=== PATIENT | female | born 1940 | race Caucasian/White ===

== ENCOUNTER 2025-02-12 09:31 | Inpatient (IN) ==
--- NOTE | 2025-02-12 09:48 | Emergency Department Note ---
Impression & Plan Syncope and collapse, Subtherapeutic international normalized ratio (INR), H/O prosthetic mitral valve, Atrial fibrillation, Long-term (current) use of anticoagulants, INR goal 2.0-3.0, Ribs, multiple fractures, Elevated troponin ED Provider Note NAME: NANCY BARRON AGE: 84 SEX: F : 1940 ARRIVES VIA: Ambulance INFORMANT: Patient ED PROVIDER(S): Mynor Toledo MD CHIEF COMPLAINT: Syncope, ?cardiac arrest PLAN: Disposition: Admit MEDICAL DECISION MAKING: The patient is a pleasant 84-year-old woman who presents to the emergency department via EMS for evaluation of reported cardiac arrest with ROSC after single round of chest compressions in the setting of the patient reporting that she got up this morning and upon standing felt lightheaded and then does not recall details. Per family the patient had become unresponsive. Upon EMS[facility] arrival they had lowered the patient to the ground due to her unresponsiveness and inability to obtain a blood pressure initially. They noted that the patient developed progressive bradycardia and appeared to be apneic and so CPR was initiated for 1 round where the patient subsequently regained consciousness. ALS did arrive to the scene and noted hypotension in the 60s/40s. They subsequently administered a single push dose of epinephrine with improvement in blood pressure. The patient is visiting family from her home in [place]. She reports a history of CABG for CAD as well as history of heart valve replacements which she understands are both "pig valves". She confirms that she is on warfarin but this is because of her "heart history". Of note, the patient does confirm upon our discussion that she is DNR and so confirms that she would not want CPR if her heart were to stop. She reports that she would be okay with intubation if this was temporizing. On evaluation patient is in no acute distress, afebrile with blood pressure in the 90s/50s with MAP 60-70+. There is mild ecchymosis of the chest wall without bony crepitus or discrete tenderness. She moves all extremities equally with generalized weakness. She has no focal neurologic deficits EKG demonstrates atrial fibrillation with LVH without overt ST elevation or depression. CXR negative for acute cardiopulmonary process per my personal preliminary review/interpretation. WBC 6.4K, within normal limits without left shift or neutrophilia. H/H 11.4/35.8 without prior for comparison. Platelets within normal limits. INR subtherapeutic 1.4. Chemistry without metabolic acidosis. Initial high- sensitivity troponin 335 in the setting of having received CPR. BNP 119, nonspecific. Lipase is normal. TSH is 9.8 however free T4 within normal limits. UA without evidence of infection. CT of the head without contrast was negative for acute abnormalities. Chronic sinusitis is described. CT of the chest was obtained and demonstrates acute bilateral rib fractures related to the patient's chest compressions prior to arrival, which includes right 2nd-7th ribs and right fifth rib fracture in 2 places as well as nondisplaced fractures of the anterior lateral left 2nd-8th ribs. No pneumothorax. Patient and family agree with plan for admission for further management. At this time, it is unclear if the patient's syncopal episode relates to true cardiac arrest versus syncope related to acute hypotension. Case was discussed with ERNST Pink PAC, with Dr. Gallo [facility] hospitalist who will evaluate the patient for admission. Case also discussed with Dr. Figueroa, ICU title i coordinator. Further management per ICU and admitting team. Triage Nursing notes reviewed and agree them. Prior/external medical records reviewed Vital Signs: reviewed Differential diagnosis: Vasovagal event, dehydration, infection, hypoglycemia, electrolyte abnormalities, cardiac sources, intracerebral event, pulmonary embolism, seizure, toxicologic, neurologic, as well as other pathologies. ER treatment provided: See below. Diagnostics interpreted by me: ECG: Atrial fibrillation, 81 bpm, no ectopy, LVH, no overt ST elevation or depression, QTc 490, QRS 118. Cardiac Monitoring: An order for continuous cardiac monitoring was placed and demonstrated Atrial fibrillation, 81 bpm, no ectopy, LVH, Laboratory studies: See below Imaging studies: See below Consultation(s): ERNST Pink PAC, with Dr. Gallo [facility] hospitalist. Dr. Figueroa, ICU title i coordinator. HPI: Per MDM. ROS: See above HPI for pertinent positives & negatives. A total of 10 systems reviewed and were otherwise negative. VITALS:See Below PHYSICAL EXAMINATION: GENERAL: Awake, alert, fatigued-appearing, in no distress HENT: Normocephalic, atraumatic. Oropharynx with dry mucous membranes and otherwise unremarkable. EYES: Normal conjunctiva. Sclera non-icteric. EOMI. No nystamgus. PEARRL. NECK: Supple. No nuchal rigidity. FROM. No JVD. RESPIRATORY: Clear to auscultation. CARDIAC: Regular rate, irregular rhythm. Extremities warm and well perfused. Pulses equal. ABDOMEN: Soft, non-distended. No tenderness to palpation. No rebound or guarding. No masses. MUSCULOSKELETAL: Chest examination reveals mild ecchymosis of the chest wall without bony crepitus or discrete tenderness. The back is symmetrical on inspection without obvious abnormality. There is no CVA tenderness to palpation. No joint edema. LOWER EXTREMITIES: Calves are equal size bilaterally and non-tender. No edema. No discoloration. NEURO: Normal sensorium. No focal sensory or motor deficits noted. Generalized weakness. SKIN: No rash or jaundice noted. Mynor Toledo MD Past Med/Surg History Problem List (Updated 02/12/25 @ 19:16 by Mynor Toledo MD) Elevated troponin (Acute) Hypothyroid Atrial fibrillation (Acute) H/O prosthetic mitral valve (Acute) Cardiac arrest Prolonged Q-T interval on ECG Subtherapeutic international normalized ratio (INR) (Acute) Ribs, multiple fractures (Acute) Sick euthyroidism Long-term (current) use of anticoagulants, INR goal 2.0-3.0 (Acute) DNR (do not resuscitate) discussion Syncope and collapse (Acute) Medical History On warfarin therapy Coronary artery disease Surgical History History of heart valve replacement Hx of CABG Social History Smoking Status: Never smoker Second Hand Exposure: No; Do You Dip or Chew Tobacco: No; Hx Alcohol Use: No Hx Substance Use: No Preferred Language: Venezuelan Communication Ability: Effective Supervisor Phosphorus Processing Required: No Beliefs That Will Affect Care: None Current Living Situation: Custodial Feels Safe at Home: Yes Assistive Devices: Cane, Denture - Upper, Denture - Lower, Glasses, Hearing Aid - Bilateral and Wheelchair Allergies Allergies Allergy/AdvReac Type Severity Reaction Status Date / Time latex Allergy Rash Verified 02/12/25 11:40 Home Meds Home Medications Medication Instructions Recorded Confirmed acetaminophen 650 mg 650 mg PO QPM 08/12/25 08/12/25 tablet,extended release ascorbic acid (vitamin C) 500 mg 1,000 mg PO QAM 02/12/25 02/12/25 tablet (Vitamin C) atorvastatin 40 mg tablet 40 mg PO QPM 02/12/25 02/12/25 calcium carbonate 500 mg PO QAM 02/12/25 02/12/25 cholecalciferol (vitamin D3) 125 125 mcg PO QAM 02/12/25 02/12/25 mcg (5,000 unit) tablet (Vitamin D3) cyanocobalamin (vitamin B-12) 1,000 mcg PO QAM 02/12/25 02/12/25 1,000 mcg tablet (Vitamin B-12) duloxetine 60 mg capsule,delayed 60 mg PO QAM 02/12/25 02/12/25 release ferrous sulfate 325 mg (65 mg 325 mg PO BID 02/12/25 02/12/25 iron) tablet furosemide 40 mg tablet 40 mg PO QAM 02/12/25 02/12/25 levothyroxine 25 mcg tablet 25 mcg PO DAILYBB 02/12/25 02/12/25 melatonin 5 mg tablet 10 mg PO QPM 02/12/25 02/12/25 metoprolol succinate 50 mg 50 mg PO QAM 02/12/25 02/12/25 tablet,extended release 24 hr omeprazole 20 mg capsule,delayed 20 mg PO QAM 02/12/25 02/12/25 release pregabalin 75 mg capsule (Lyrica) 75 mg PO BID 02/12/25 02/12/25 sennosides 8.6 mg-docusate sodium 2 tab-cap PO BID 02/12/25 02/12/25 50 mg tablet (Senna Plus) tramadol 50 mg tablet 50 mg PO Q8H Pain 02/12/25 02/12/25 trazodone 100 mg tablet 100 mg PO QPM 02/12/25 02/12/25 warfarin 1 mg tablet 0.5 mg PO QPM 02/12/25 02/12/25 warfarin 4 mg tablet 4 mg PO QPM 02/12/25 02/12/25 Results & Data (ED) Vital Signs Vital Signs - 24 hr 02/12/25 09:29 02/12/25 09:34 02/12/25 09:34 Temperature 36.4 C L Temperature Source Temporal Artery Scan Pulse Rate 79 Pulse Rate [Apical] Pulse Rate from SpO2 Sensor Respiratory Rate 18 18 Respiratory Effort / Characteristics Respiratory Depth Respiratory Pattern Blood Pressure 91/46 L Blood Pressure [Right Arm] Blood Pressure Mean 61 Blood Pressure Mean [Right Arm] Pulse Oximetry 91 Oxygen Delivery Method Room Air Room Air Oxygen Flow Rate Sepsis Recent Fever Within 48 Hours No Sepsis New/Unexplained Change in Mental Status N/A Sepsis Action Taken by Nursing No Action Required Oxygen Flow Rate - Titration Pulse Oximetry Post Tiitration 02/12/25 09:38 02/12/25 09:41 02/12/25 09:43 Temperature Temperature Source Pulse Rate 86 83 Pulse Rate [Apical] Pulse Rate from SpO2 Sensor Respiratory Rate Respiratory Effort / Characteristics Respiratory Depth Respiratory Pattern Blood Pressure 91/46 L 96/54 L Blood Pressure [Right Arm] Blood Pressure Mean 75 68 Blood Pressure Mean [Right Arm] Pulse Oximetry Oxygen Delivery Method Oxygen Flow Rate Sepsis Recent Fever Within 48 Hours Sepsis New/Unexplained Change in Mental Status Sepsis Action Taken by Nursing Oxygen Flow Rate - Titration Pulse Oximetry Post Tiitration 02/12/25 09:45 02/12/25 09:45 02/12/25 09:50 Temperature Temperature Source Pulse Rate 82 Pulse Rate [Apical] Pulse Rate from SpO2 Sensor 84 Respiratory Rate 13 Respiratory Effort / Characteristics Respiratory Depth Respiratory Pattern Blood Pressure 100/49 L Blood Pressure [Right Arm] Blood Pressure Mean 66 Blood Pressure Mean [Right Arm] Pulse Oximetry 90 90 Oxygen Delivery Method Room Air Oxygen Flow Rate Sepsis Recent Fever Within 48 Hours Sepsis New/Unexplained Change in Mental Status Sepsis Action Taken by Nursing Oxygen Flow Rate - Titration Pulse Oximetry Post Tiitration 02/12/25 09:50 02/12/25 09:51 02/12/25 09:55 Temperature Temperature Source Pulse Rate 80 Pulse Rate [Apical] Pulse Rate from SpO2 Sensor 82 Respiratory Rate 17 Respiratory Effort / Characteristics Respiratory Depth Respiratory Pattern Blood Pressure 100/49 L 107/67 Blood Pressure [Right Arm] Blood Pressure Mean 66 82 Blood Pressure Mean [Right Arm] Pulse Oximetry 89 L Oxygen Delivery Method Oxygen Flow Rate Sepsis Recent Fever Within 48 Hours Sepsis New/Unexplained Change in Mental Status Sepsis Action Taken by Nursing Oxygen Flow Rate - Titration Pulse Oximetry Post Tiitration 02/12/25 09:55 02/12/25 09:55 02/12/25 10:00 Temperature Temperature Source Pulse Rate 83 Pulse Rate [Apical] Pulse Rate from SpO2 Sensor 86 Respiratory Rate 15 Respiratory Effort / Characteristics Respiratory Depth Respiratory Pattern Blood Pressure 107/67 107/67 Blood Pressure [Right Arm] Blood Pressure Mean 82 82 Blood Pressure Mean [Right Arm] Pulse Oximetry 94 Oxygen Delivery Method Oxygen Flow Rate Sepsis Recent Fever Within 48 Hours Sepsis New/Unexplained Change in Mental Status Sepsis Action Taken by Nursing Oxygen Flow Rate - Titration Pulse Oximetry Post Tiitration 02/12/25 10:21 02/12/25 10:21 02/12/25 10:25 Temperature Temperature Source Pulse Rate Pulse Rate [Apical] Pulse Rate from SpO2 Sensor Respiratory Rate Respiratory Effort / Characteristics Respiratory Depth Respiratory Pattern Blood Pressure 99/54 L Blood Pressure [Right Arm] Blood Pressure Mean 71 Blood Pressure Mean [Right Arm] Pulse Oximetry 88 L 88 L Oxygen Delivery Method Room Air Oxygen Flow Rate 0 Sepsis Recent Fever Within 48 Hours Sepsis New/Unexplained Change in Mental Status Sepsis Action Taken by Nursing Oxygen Flow Rate - Titration 2 Pulse Oximetry Post Tiitration 95 02/12/25 10:30 02/12/25 10:30 02/12/25 10:30 Temperature Temperature Source Pulse Rate Pulse Rate [Apical] Pulse Rate from SpO2 Sensor Respiratory Rate Respiratory Effort / Characteristics Respiratory Depth Respiratory Pattern Blood Pressure 95/58 L 95/58 L 95/58 L Blood Pressure [Right Arm] Blood Pressure Mean 63 63 63 Blood Pressure Mean [Right Arm] Pulse Oximetry 94 Oxygen Delivery Method Nasal Cannula Oxygen Flow Rate 2 Sepsis Recent Fever Within 48 Hours Sepsis New/Unexplained Change in Mental Status Sepsis Action Taken by Nursing Oxygen Flow Rate - Titration Pulse Oximetry Post Tiitration 02/12/25 10:30 02/12/25 10:33 02/12/25 10:35 Temperature Temperature Source Pulse Rate 82 67 Pulse Rate [Apical] Pulse Rate from SpO2 Sensor 78 Respiratory Rate 17 14 Respiratory Effort / Characteristics Respiratory Depth Respiratory Pattern Blood Pressure 95/58 L 94/54 L Blood Pressure [Right Arm] Blood Pressure Mean 63 68 Blood Pressure Mean [Right Arm] Pulse Oximetry 94 92 Oxygen Delivery Method Nasal Cannula Oxygen Flow Rate 2 Sepsis Recent Fever Within 48 Hours Sepsis New/Unexplained Change in Mental Status Sepsis Action Taken by Nursing Oxygen Flow Rate - Titration Pulse Oximetry Post Tiitration 02/12/25 10:35 02/12/25 10:35 02/12/25 11:03 Temperature Temperature Source Pulse Rate Pulse Rate [Apical] 79 Pulse Rate from SpO2 Sensor Respiratory Rate 18 Respiratory Effort / Characteristics Non-Labored Respiratory Depth Normal Respiratory Pattern Regular Blood Pressure 94/54 L 94/54 L Blood Pressure [Right Arm] 88/50 L Blood Pressure Mean 68 68 Blood Pressure Mean [Right Arm] 62 Pulse Oximetry 91 Oxygen Delivery Method Nasal Cannula Oxygen Flow Rate 3 Sepsis Recent Fever Within 48 Hours Sepsis New/Unexplained Change in Mental Status Sepsis Action Taken by Nursing Oxygen Flow Rate - Titration Pulse Oximetry Post Tiitration 02/12/25 11:30 Temperature Temperature Source Pulse Rate 69 Pulse Rate [Apical] Pulse Rate from SpO2 Sensor 76 Respiratory Rate 16 Respiratory Effort / Characteristics Respiratory Depth Respiratory Pattern Blood Pressure 88/58 L Blood Pressure [Right Arm] Blood Pressure Mean 68 Blood Pressure Mean [Right Arm] Pulse Oximetry 92 Oxygen Delivery Method Oxygen Flow Rate Sepsis Recent Fever Within 48 Hours Sepsis New/Unexplained Change in Mental Status Sepsis Action Taken by Nursing Oxygen Flow Rate - Titration Pulse Oximetry Post Tiitration Laboratory Data Attestation: I reviewed the patient's lab results. 02/12/25 09:42 02/12/25 09:42 Lab Results 02/12/25 02/12/25 Range/Units 09:42 09:45 WBC 6.46 (4.8-10.8) K/ul RBC 3.86 L (4.20-5.40) M/uL Hgb 11.4 L (12.0-16.0) g/dl POC Hgb 11.2 L (12.0-16.0) g/dl Hct 35.8 L (37.0-47.0) % POC Hct 33 L (37-47) % MCV 92.7 (80.0-100.0) fL MCH 29.5 (25.0-34.0) pg MCHC 31.8 L (32.0-36.0) g/dL RDW Std Deviation 50.7 H (36.4-46.3) fL RDW Coeff of Ashley 15.0 H (11.5-14.5) % Plt Count 155 (130-400) K/uL MPV 11.2 (9.4-12.4) fL Immature Gran % (Auto) 1.4 % Neut % (Auto) 51.8 % Lymph % (Auto) 37.5 % Pender % (Auto) 7.3 % Eos % (Auto) 1.7 % Baso % (Auto) 0.3 % Neut # (Auto) 3.35 (1.40-6.50) K/uL Lymph # (Auto) 2.42 (1.20-3.40) K/uL Pender # (Auto) 0.47 (0.11-0.59) K/uL Eos # (Auto) 0.11 (0.00-0.50) K/uL Baso # (Auto) 0.02 (0.00-0.20) K/uL Immature Gran # (Auto) 0.09 (0.01-0.20) K/uL PT 14.6 H (9.0-12.0) Seconds INR 1.4 H (0.9-1.1) POC Sodium 140 (135-144) mmol/L Sodium 142 (136-145) mmol/L POC Potassium 3.3 (3.3-5.0) mmol/L Potassium 3.4 L (3.5-5.1) mmol/L POC Chloride 100 L (101-112) mmol/L Chloride 103 (98-107) mmol/L Carbon Dioxide 33 H (21-32) mmol/L POC Total CO2 27 (24-31) mmol/L Anion Gap 6 (3-11) POC Anion Gap 18.0 (16-25) mmol/L POC BUN 14 (7-18) mg/dl BUN 15 (6-23) mg/dl Creatinine 1.07 (0.6-1.2) mg/dl POC Creatinine 1.2 (0.6-1.3) mg/dl Est Cr Clr Drug Dosing 33.2 ml/min eGFR 50.90 BUN/Creatinine Ratio 14.0 (10-20) Glucose 159 H (70-99(Fasting)) mg/dl POC Glucose (other) 155 H (70-99) mg/dl Calcium 8.8 (8.6-10.3) mg/dl POC Ioniz Calcium Usha 1.12 (1.12-1.32) mmol/l Phosphorus 3.7 (2.5-4.9) mg/dl Magnesium 1.8 (1.7-2.4) mg/dl Total Bilirubin 1.0 (0.2-1.0) mg/dl AST 33 (13-39) U/L ALT 22 (7-52) U/L Alkaline Phosphatase 48 (34-104) U/L Troponin I High Sens 335.0 H* (0-14) pg/ml B-Natriuretic Peptide 119 H (0-100) pg/ml Total Protein 6.2 (6.0-8.3) gm/dl Albumin 3.9 (3.4-5.0) gm/dl Globulin 2.3 L (2.5-4.0) gm/dl Albumin/Globulin Ratio 1.7 (0.9-2) Lipase 28 (11-82) U/L TSH 9.855 H (0.300-4.500) uIu/ml Free T4 0.85 (0.61-1.60) ng/dl Administered Medications Lidocaine (Lidocaine 5% 1 Patch) 1 patch TD QAM MATHEW Stop: 03/14/25 14:59 Last Admin: 02/12/25 15:06 Dose: 1 patch Documented By: KASI Pregabalin (Pregabalin 75 Mg Cap) 75 mg PO BID@0900,1600 MATHEW Stop: 03/14/25 18:29 Last Admin: 02/12/25 18:39 Dose: 75 mg Documented By: KASI Discontinued Medications Sodium Chloride (Nss) 500 mls @ 999 mls/hr IV .Q31M ONE Stop: 02/12/25 10:16 Last Infusion: 02/12/25 10:23 Dose: Infused Documented By: Admin: 02/12/25 09:52 Dose: 999 mls/hr Documented By: STEPHANIE Acetaminophen (Ofirmev) 1,000 mg in 100 mls @ 400 mls/hr IV NOW STA Stop: 02/12/25 10:00 Last Infusion: 02/12/25 10:23 Dose: Infused Documented By: Admin: 02/12/25 09:51 Dose: 400 mls/hr Documented By: STEPHANIE Lactated Ringer's (Lr) 1,000 mls @ 999 mls/hr IV .Q1H1M ONE Stop: 02/12/25 14:25 Last Infusion: 02/12/25 14:43 Dose: Infused Documented By: Admin: 02/12/25 13:35 Dose: 999 mls/hr Documented By: TINY Ioversol (Optiray 320 100ml) 94 ml IV ONCE ONE Stop: 02/12/25 10:21 Last Admin: 02/12/25 10:20 Dose: 94 ml Documented By: PALMIRA Tramadol HCl (Tramadol Hcl 50 Mg Tablet) 50 mg PO Q6H PRN PRN Reason: MODERATE/SEVERE Pain Stop: 03/14/25 14:41 Last Admin: 02/12/25 14:57 Dose: 50 mg Documented By: KASI Imaging Data Radiologist's Impression: Chest X-Ray 02/12/25 09:45 XR chest 1V portable CLINICAL HISTORY: Chest pain, nonspecific COMPARISON STUDY: None FINDINGS: There is cardiac valve repair. There is mild cardiomegaly without pulmonary vascular congestion. No consolidation or pleural effusion seen. No pneumothorax. IMPRESSION: No acute findings. ACT 112: Negative or not required by law. Electronically signed by: Jeremy Godfrey M.D. 02/12/2025 10:[address] 02/12/25 09:[address] WITH CONTRAST CT DOSE: 1172.03 mGy.cm HISTORY: Acute chest and upper back pain. Recent cardiac arrest with CPR chest/back pain, s/p CPR TECHNIQUE: Multiaxial CT images of the chest were performed following the IV administration of 94 cc of Optiray. A dose lowering technique was utilized adhering to the principles of ALARA. COMPARISON: None. FINDINGS: No dominant thyroid nodule or pathologically enlarged lymph nodes. Heart is mildly enlarged. Median sternotomy. Prosthetic aortic and mitral valves. Mild ectasia of the ascending thoracic aorta measures 3.9 cm. Unremarkable pulmonary artery. No pneumothorax, pleural effusion or overt pulmonary edema. Subsegmental bibasilar atelectasis/scarring. There are no suspicious pulmonary nodules or masses. Central airways are patent. Cholecystectomy. Unremarkable soft tissues. Degenerative changes of the shoulders and spine. No acute displaced rib fractures. Acute bilateral anterolateral rib fractures. This includes the right second through seventh ribs with the right fifth rib fracture in two places. Acute nondisplaced fractures of the anterolateral left second through eighth ribs. A few of the fractures are mildly angulated. The left fifth rib is fractured in two places with minimally displaced fracture anteriorly on image 159. No acute sternal fracture identified. IMPRESSION: 1. Acute bilateral rib fractures with the anterior left fifth rib fracture mildly displaced. 2. No pneumothorax. 3. No acute sternal fracture identified. ACT 112: Negative or not required by law. Electronically signed by: Regulo Olsen M.D. 02/12/2025 10:[address] 02/12/25 09:47 CT head/brain wo con CLINICAL HISTORY: syncope. TECHNIQUE: Multiple axial CT images of the head were obtained without contrast. A dose lowering technique was utilized adhering to the principles of ALARA. CT DOSE: 1172 COMPARISON: None FINDINGS: There are globus pallidus and choroid plexus calcifications. No intracranial hemorrhage seen. No mass effect, midline shift, or hydrocephalus. There are a few old lacunar infarctions at the left basal ganglia. There are moderate chronic small vessel ischemic changes. There is severe mucosal thickening at the visualized right maxillary sinus with mild thickening of the right maxillary sinus wall consistent with chronic right maxillary sinusitis. Otherwise the visualized paranasal sinuses and mastoid air cells are clear. No skull fracture seen. IMPRESSION: 1. No acute intracranial findings. 2. Chronic right maxillary sinusitis. ACT 112: Negative or not required by law. The above report was generated using voice recognition software. It may contain grammatical, syntax or spelling errors. Electronically signed by: Jeremy Godfrey M.D. 02/12/2025 10:26 AM Discharge Plan Visit Data Chief Complaint: Cardiac Arrest/CPR Stated Complaint: POST CARDIAC ARREST ED Provider: Mynor Toledo Discharge Problem: Syncope and collapse, Subtherapeutic international normalized ratio (INR), H/O prosthetic mitral valve, Atrial fibrillation, Long-term (current) use of anticoagulants, INR goal 2.0-3.0, Ribs, multiple fractures, Elevated troponin Patient Disposition: Admitted As Inpatient Condition: Critical Discharge Problem: Atrial fibrillation Qualifiers: Atrial fibrillation type: unspecified Qualified Code(s): I48.91 - Unspecified atrial fibrillation Ribs, multiple fractures Qualifiers: Encounter type: initial encounter Fracture type: closed Laterality: bilateral Q ualified Code(s): S22.43XA - Multiple fractures of ribs, bilateral, initial encounter for closed fracture
[2025-02-12] MEDS: ACETAMINOPHEN 1,000 MG/100 ML VIAL IV STA (09:51)
[2025-02-12] MEDS: SODIUM CHLORIDE 0.9% 500 ML IV ONE (09:52)
[2025-02-12 10:11] LABS: Hematocrit (blood only) 35.8 % (37.0-47.0); Hemoglobin 11.4 g/dl (12.0-16.0); Immature Granulocytes # (auto) 0.09 K/uL (0.01-0.20); Immature Granulocytes % (auto) 1.4 %; Mean Corpuscular Hemoglobin 29.5 pg (25.0-34.0); Mean Corpuscular Volume 92.7 fL (80.0-100.0); Platelet Count 155 K/uL (130-400); RDW Standard Deviation 50.7 fL (36.4-46.3); Red Blood Count 3.86 M/uL (4.20-5.40); White Blood Count 6.46 K/ul (4.8-10.8)
--- NOTE | 2025-02-12 10:18 | XRay Report ---
XR chest 1V portable CLINICAL HISTORY: Chest pain, nonspecific COMPARISON STUDY: None FINDINGS: There is cardiac valve repair. There is mild cardiomegaly without pulmonary vascular conges tion. No consolidation or pleural effusion seen. No pneumothorax. IMPRESSION: No acute findings. ACT 112: Negative or not required by law. Electronically signed by: Jeremy Godfrey M.D. 02/12/2025 10:17 AM
[2025-02-12] MEDS: OPTIRAY 320 100ml IV ONE (10:20)
[2025-02-12 10:26] LABS: Alanine Aminotransferase 22.0 U/L (7-52); Albumin Globulin Ratio 1.7 (0.9-2); Alkaline Phosphatase 48.0 U/L (34-104); Anion Gap 6.0 (3-11); Bilirubin,Total 1.0 mg/dl (0.2-1.0); Blood Urea Nitrogen 15.0 mg/dl (6-23); Calcium 8.8 mg/dl (8.6-10.3); Carbon Dioxide 33.0 mmol/L (21-32); Chloride 103.0 mmol/L (98-107); Creatinine Clr Calc Pharmacy 33.2 ml/min; Globulin 2.3 gm/dl (2.5-4.0); Glucose 159.0 mg/dl (70-99(Fasting)); Lipase 28.0 U/L (11-82); Magnesium 1.8 mg/dl (1.7-2.4); Potassium 3.4 mmol/L (3.5-5.1); Sodium 142.0 mmol/L (136-145); Total Protein 6.2 gm/dl (6.0-8.3)
--- NOTE | 2025-02-12 10:27 | CT Scan Report ---
CT head/brain wo con CLINICAL HISTORY: syncope. TECHNIQUE: Multiple axial CT images of the head were obtained without contrast. A dose lowering tech nique was utilized adhering to the principles of ALARA. CT DOSE: 1172 COMPARISON: None FINDINGS: There are globus pallidus and choroid plexus calcifications. No intracranial hemorrhage see n. No mass effect, midline shift, or hydrocephalus. There are a few old lacunar infarctions at the le ft basal ganglia. There are moderate chronic small vessel ischemic changes. There is severe mucosal t hickening at the visualized right maxillary sinus with mild thickening of the right maxillary sinus w all consistent with chronic right maxillary sinusitis. Otherwise the visualized paranasal sinuses and mastoid air cells are clear. No skull fracture seen. IMPRESSION: 1. No acute intracranial findings. 2. Chronic right maxillary sinusitis. ACT 112: Negative or not required by law. The above report was generated using voice recognition software. It may contain grammatical, syntax o r spelling errors. Electronically signed by: Jeremy Godfrey M.D. 02/12/2025 10:26 AM
[2025-02-12 10:34] LABS: INR 1.4 (0.9-1.1); Prothrombin Time 14.6 Seconds (9.0-12.0)
[2025-02-12 10:39] LABS: Thyroid Stimulating Hormone 9.855 uIu/ml (0.300-4.500)
--- NOTE | 2025-02-12 10:48 | CT Scan Report ---
CHEST CT WITH CONTRAST CT DOSE: 1172.03 mGy.cm HISTORY: Acute chest and upper back pain. Recent cardiac arrest with CPR chest/back pain, s/p CPR TECHNIQUE: Multiaxial CT images of the chest were performed following the IV administration of 94 cc of Optiray. A dose lowering technique was utilized adhering to the principles of ALARA. COMPARISON: None. FINDINGS: No dominant thyroid nodule or pathologically enlarged lymph nodes. Heart is mildly enlarged . Median sternotomy. Prosthetic aortic and mitral valves. Mild ectasia of the ascending thoracic aort a measures 3.9 cm. Unremarkable pulmonary artery. No pneumothorax, pleural effusion or overt pulmonary edema. Subsegmental bibasilar atelectasis/scarri ng. There are no suspicious pulmonary nodules or masses. Central airways are patent. Cholecystectomy. Unremarkable soft tissues. Degenerative changes of the shoulders and spine. No acute displaced rib f ractures. Acute bilateral anterolateral rib fractures. This includes the right second through seventh ribs with the right fifth rib fracture in two places. Acute nondisplaced fractures of the anterolate ral left second through eighth ribs. A few of the fractures are mildly angulated. The left fifth rib is fractured in two places with minimally displaced fracture anteriorly on image 159. No acute sterna l fracture identified. IMPRESSION: 1. Acute bilateral rib fractures with the anterior left fifth rib fracture mildly displaced. 2. No pneumothorax. 3. No acute sternal fracture identified. ACT 112: Negative or not required by law. Electronically signed by: Regulo Olsen M.D. 02/12/2025 10:47 AM
--- NOTE | 2025-02-12 11:47 | History & Physical Report ---
Date of Service February 12, 2025 Assessment & Plan (1) Cardiac arrest: (2) H/O prosthetic mitral valve: (3) Ribs, multiple fractures: (4) Atrial fibrillation: (5) Hypothyroid: Plan Aura is an 84 F with a PMHx of afib, HLD, hypothyroid, GERD, and CHF who presents to hospital after possible outside cardiac arrest. #Cardiac arrest ROSC obtained in the field, however given story possible syncopal event or arrhythmia Troponin elevated 1177trend to peak every 6 hours Cardiology consulted Echo ordered - EF 60 to 65%, no regional wall motion abnormalities, moderate concentric LVH. Prosthetic mitral valve is well-seated. PT/OT #Rib fractures- Secondary to CPR Ribs 2 through 7 on the right, ribs 2 through 8 on the left. Initially plan was to admit to the ICU, however patient declined any ICU level care. Remains a DNR/DNI, would not want vasopressors. Admitted to PCU and pulmonology was consulted - recommend supportive care aggressive pulmonary toilet with incentive spirometry, ambulation as tolerated. If pain is not controlled recommend anesthesia consultation for regional block. Wean oxygen as tolerated, baseline is room air Pain control: Scheduled Tylenol, as needed Tylenol, morphine for breakthrough. Continue home schedule tramadol #A-fib on warfarin Also with prosthetic mitral valve Continue metoprolol and statin Hold warfarin todayreassess bleeding/bruising in AM. #mental health - continue cymbalta #hypothyroid - continue synthroid TSH elevated but with acute events recommend recheck outpatient, no dose adjustments made dispo: Admit to PCU DVT prophylaxis: Hold Coumadin, SCDs for now Family updated at bedside 02/[address] wise History of Present Illness Chief Complaint: cardiac arrest Primary Care Provider: NO PCP Aura is an 84 F with a PMHx of afib, HLD, hypothyroid, GERD, hx of breast cancer, ERASTO and CHF who presents to hospital after possible outside cardiac arrest. history obtained from patient, ER doctor and family at bedside. Per report, pateint felt fine this morning, took her pills and was eating breakfast. Was trying to take a sip of her coffee and was weak and could not lift her arm and then became weak and unresponsive. [facility] ambulence crew on scene thought she had lost pulse and started compressions, rosc after one round of compressions. then BP was 60/40s and one round of epi was given patient does not recall the events. Reports feeling tired when I saw her in the ED. NOrmal state of health the last few days. Did take her medications this mroning informed of her rib fractures Patient would like to be a DNR/DNI Allergies Allergy/AdvReac Type Severity Reaction Status Date / Time latex Allergy Rash Verified 02/12/25 11:40 Home Medications Medication Instructions Recorded Confirmed Type acetaminophen 650 mg 650 mg PO QPM 02/12/25 02/12/25 History tablet,extended release ascorbic acid (vitamin C) 500 mg 1,000 mg PO QAM 02/12/25 02/12/25 History tablet (Vitamin C) atorvastatin 40 mg tablet 40 mg PO QPM 02/12/25 02/12/25 History calcium carbonate 500 mg PO QAM 02/12/25 02/12/25 History cholecalciferol (vitamin D3) 125 125 mcg PO QAM 02/12/25 02/12/25 History mcg (5,000 unit) tablet (Vitamin D3) cyanocobalamin (vitamin B-12) 1,000 mcg PO QAM 02/12/25 02/12/25 History 1,000 mcg tablet (Vitamin B-12) duloxetine 60 mg capsule,delayed 60 mg PO QAM 02/12/25 02/12/25 History release ferrous sulfate 325 mg (65 mg 325 mg PO BID 02/12/25 02/12/25 History iron) tablet furosemide 40 mg tablet 40 mg PO QAM 02/12/25 02/12/25 History levothyroxine 25 mcg tablet 25 mcg PO DAILYBB 02/12/25 02/12/25 History melatonin 5 mg tablet 10 mg PO QPM 02/12/25 02/12/25 History metoprolol succinate 50 mg 50 mg PO QAM 02/12/25 02/12/25 History tablet,extended release 24 hr omeprazole 20 mg capsule,delayed 20 mg PO QAM 02/12/25 02/12/25 History release pregabalin 75 mg capsule (Lyrica) 75 mg PO BID 02/12/25 02/12/25 History sennosides 8.6 mg-docusate sodium 2 tab-cap PO BID 02/12/25 02/12/25 History 50 mg tablet (Senna Plus) tramadol 50 mg tablet 50 mg PO Q8H Pain 02/12/25 02/12/25 History trazodone 100 mg tablet 100 mg PO QPM 02/12/25 02/12/25 History warfarin 1 mg tablet 0.5 mg PO QPM 02/12/25 02/12/25 History warfarin 4 mg tablet 4 mg PO QPM 02/12/25 02/12/25 History Past Med/Surg History Problem List (Updated 02/12/25 @ 19:16 by Mynor Toledo MD) Elevated troponin (Acute) Hypothyroid Atrial fibrillation (Acute) H/O prosthetic mitral valve (Acute) Cardiac arrest Prolonged Q-T interval on ECG Subtherapeutic international normalized ratio (INR) (Acute) Ribs, multiple fractures (Acute) Sick euthyroidism Long-term (current) use of anticoagulants, INR goal 2.0-3.0 (Acute) DNR (do not resuscitate) discussion Syncope and collapse (Acute) Medical History On warfarin therapy Coronary artery disease Surgical History History of heart valve replacement Hx of CABG Social History Smoking Status: Never smoker Second Hand Exposure: No; Do You Dip or Chew Tobacco: No; Hx Alcohol Use: No Hx Substance Use: No Preferred Language: Hungarian Communication Ability: Effective Commodity Specialist Required: No Beliefs That Will Affect Care: None Current Living Situation: [facility] Feels Safe at Home: Yes Assistive Devices: Cane, Denture - Upper, Denture - Lower, Glasses, Hearing Aid - Bilateral and Wheelchair Review of Systems Review of Systems: All systems reviewed & are unremarkable except as noted in Subjective Physical Exam Physical Exam: General: NAD, VS as above Resp: normal respiratory effort, lungs clear to auscultation chest - no bruising or obvious deformity CV: RRR, no murmur, Abd: normal bowel sounds, non tender, no hepatosplenomegaly Extremities: Moves all extremities, no edema Neuro: A&O x3, Skin: intact, no lesions noted Results & Data Results & Data Vital Signs (Past 12 Hours) Vital Signs Temp Pulse Pulse Resp BP BP Pulse Ox 02/12/25 11:03 79 18 88/50 L 91 02/12/25 10:35 94/54 L 02/12/25 10:35 94/54 L 02/12/25 10:35 67 14 94/54 L 92 02/12/25 10:33 82 17 94 02/12/25 10:30 95/58 L 02/12/25 10:30 95/58 L 02/12/25 10:30 95/58 L 02/12/25 10:30 95/58 L 94 02/12/25 10:25 99/54 L 02/12/25 10:21 88 L 02/12/25 10:21 88 L 02/12/25 10:00 83 15 94 02/12/25 09:55 107/67 02/12/25 09:55 107/67 02/12/25 09:55 107/67 02/12/25 09:51 80 17 89 L 02/12/25 09:50 100/49 L 02/12/25 09:50 100/49 L 02/12/25 09:45 82 13 90 02/12/25 09:45 90 02/12/25 09:43 96/54 L 02/12/25 09:41 83 02/12/25 09:38 86 91/46 L 02/12/25 09:34 18 02/12/25 09:34 02/12/25 09:29 97.5 F L 79 18 91/46 L 91 O2 Del Method O2 Flow Rate 02/12/25 11:03 Nasal Cannula 3 02/12/25 10:35 02/12/25 10:35 02/12/25 10:35 Nasal Cannula 2 02/12/25 10:33 02/12/25 10:30 02/12/25 10:30 02/12/25 10:30 02/12/25 10:30 Nasal Cannula 2 02/12/25 10:25 02/12/25 10:21 Room Air 0 02/12/25 10:21 02/12/25 10:00 02/12/25 09:55 02/12/25 09:55 02/12/25 09:55 02/12/25 09:51 02/12/25 09:50 02/12/25 09:50 02/12/25 09:45 02/12/25 09:45 Room Air 02/12/25 09:43 02/12/25 09:41 02/12/25 09:38 02/12/25 09:34 02/12/25 09:34 Room Air 02/12/25 09:29 Room Air Laboratory Results cbc, chemistry, INR reviewed troponin reviewed TSH reviewed UA reviewed Code Status & VTE Plan VTE Prophylaxis Plan VTE Prophylaxis will be ordered: Yes Supervising Physician Co-Signing Physician Notes PA Supervision Note: I personally saw and examined the patient. I verified all villafana points and agree with ISREAL Boyd with the following exceptions and/or additions: S-patient presents after having cardiac arrest at home today after eating breakfast feeling lightheaded and does not remember anything after that. CPR was performed in the field by EMS for 2 minutes and she was given 1 dose of epinephrine for hypotension after ROSC achieved. Patient found to have multiple rib fractures on both sides and has some pain but is doing surprisingly well. She denies any previous recent cough or cold symptoms or fevers. She has been doing well otherwise and has no chest pains prior to the event. History and ROS otherwise reviewed as above O- Vitals reviewed Gen: AAOx3, NAD HEENT: Anicteric sclerae, EOMI CV: Irregularly irregular, normal rate no mgr nl S1S2 Pulm: CTAB no wcr Abd: +BS soft NT ND no masses or hernias Ext: No edema Skin: No rashes, warm/dry Neuro: Full strength throughout, gait normal CBC, BMP, troponin reviewed A/V-78-or[age]-old female with history of CAD s/p CABG, permanent atrial fibrillation on Coumadin, porcine mitral valve replacement, hypothyroidism, depression/anxiety, here after having cardiac arrest versus vasovagal syncope with profound hypotension. Underwent CPR and achieved ROSC after 2 minutes, required epinephrine. Remained a bit hypotensive here after admission which improved with IV fluid resuscitation With multiple bilateral rib fractures-pain control, incentive spirometry, ambulation, possible anesthesia consult for neuro axial block if needed Monitor on telemetry for arrhythmias, trend serial troponin, check echocardiogram, consult cardiology. Perhaps had an arrhythmia that caused cardiac arrest or syncope. May need prolonged telemetry monitoring after discharge Hold home Lasix and give metoprolol with hold parameters PG Care Time/CCT Total # of Minutes Spent Total Time Spent with Patient: Total time spent is greater than 50% in coordination of care (as documented) at patient's floor/unit and/or counseling patient: Coding Level of Care Code 74614 INT INP/OBS CARE 75MIN Diagnoses Cardiac arrest I46.9 H/O prosthetic mitral valve Z95.2 Closed fracture of multiple ribs of both sides, initial encounter S22.43XA Encounter type: initial encounter Fracture type: closed Laterality: bilateral Atrial fibrillation I48.91 Hypothyroid E03.9 (3) Ribs, multiple fractures Encounter type: initial encounter Fracture type: closed Laterality: bilateral Qualified Code(s): S22.43XA - Multiple fractures of ribs, bilateral, initial encounter for closed fracture
--- NOTE | 2025-02-12 13:06 | Critical Care Consultation ---
Date of Consultation February 12, 2025 Assessment & Plan (1) Ribs, multiple fractures: And having nuanced discussion with patient she would not want aggressive intervention if she were to decompensate from a pulmonary contusion - Goal would be to maintain aggressive pulmonary toilet - Intubation for pulmonary contusion is not in line with patient's long-term goals - Most aggressive intervention should the patient decompensate from a pulmonary standpoint would be neuraxial anesthesia and nerve blockade - Patient not complaining of significant pain with respiratory function at this time. (2) Syncope and collapse: My initial impression is this is rather consistent with vasovagal and/or convulsive syncope. EKG reassuring that this is not an ST elevation myocardial infarction, of note the QTc is somewhat prolonged at 490 - Recommend optimizing electrolytes including magnesium to greater than 2 (3) Subtherapeutic international normalized ratio (INR): I would consider bleeding risk to be minimal; however, there would be significant impact should the patient need neuraxial anesthesia from a rib fracture component - Bioprosthetic valves are greater than 10 years old - Echo being obtained if there is a gradient this could be indication to continue anticoagulation at goal (4) On warfarin therapy: Bioprosthetic valves, strongest indication for anticoagulant therapy is permanent A-fib (5) Coronary artery disease: (6) History of heart valve replacement: (7) Hx of CABG: (8) DNR (do not resuscitate) discussion: (9) Long-term (current) use of anticoagulants, INR goal 2.0-3.0: (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 Patient does not want therapies offered from critical care setting, accordingly patient is appropriate for monitored nursing History of Present Illness Reason for Consultation: Multiple rib fractures status post chest compressions History of Present Illness Patient is an 84-year-old female who is residing with a friend for the week, (patient normally resides in [place] and gets her medical care there) the patient provides history that she stood up and felt lightheaded and at that point does not remember specific details. From additional family members they lowered the patient to the ground and she was unresponsive for approximately 2 minutes, BLS providers arrived and per report started CPR for which the patient regained consciousness. Upon ALS arrival patient was found to be somewhat hypotensive and gave a small dose of epinephrine which improved her pressures. Patient has a significant past medical history for coronary artery disease status post CABG as well as heart valve replacements: Not mechanical bioprosthetic. She reports that she is in permanent A-fib and on Coumadin with goal between 2 and 2.5 INR. She reports that she has been taking her medication regularly and has not changed her diet in terms of increase in green leafy vegetables or taking supplemental vitamins. In discussion with the patient as well as accompanying family members and friends the patient does not want aggressive measures nor heroic measures. She is DO NOT RESUSCITATE in event of cardiac arrest. We had a more nuanced discussion regarding intubation for respiratory insufficiency and she does not believe intubation in the event of respiratory insufficiency would be in line with her long-term health goals. Specifically there is a high probability of permanent vent dependence for respiratory insufficiency in potentially reversible conditions; therefore, irreversible condition must be significantly easily reversible for her to want to undergo invasive treatment. Similarly we discussed the risks and benefits of central venous access for administration of vasoactive's should they be required. She felt this was inconsistent with her wishes. Allergies Allergy/AdvReac Type Severity Reaction Status Date / Time latex Allergy Rash Verified 02/12/25 11:40 Home Medications Medication Instructions Recorded Confirmed Type acetaminophen 650 mg 650 mg PO QPM 02/12/25 02/12/25 History tablet,extended release ascorbic acid (vitamin C) 500 mg 1,000 mg PO QAM 02/12/25 02/12/25 History tablet (Vitamin C) atorvastatin 40 mg tablet 40 mg PO QPM 02/12/25 02/12/25 History calcium carbonate 500 mg PO QAM 02/12/25 02/12/25 History cholecalciferol (vitamin D3) 125 125 mcg PO QAM 02/12/25 02/12/25 History mcg (5,000 unit) tablet (Vitamin D3) cyanocobalamin (vitamin B-12) 1,000 mcg PO QAM 02/12/25 02/12/25 History 1,000 mcg tablet (Vitamin B-12) duloxetine 60 mg capsule,delayed 60 mg PO QAM 02/12/25 02/12/25 History release ferrous sulfate 325 mg (65 mg 325 mg PO BID 02/12/25 02/12/25 History iron) tablet furosemide 40 mg tablet 40 mg PO QAM 02/12/25 02/12/25 History levothyroxine 25 mcg tablet 25 mcg PO DAILYBB 02/12/25 02/12/25 History melatonin 5 mg tablet 10 mg PO QPM 02/12/25 02/12/25 History metoprolol succinate 50 mg 50 mg PO QAM 02/12/25 02/12/25 History tablet,extended release 24 hr omeprazole 20 mg capsule,delayed 20 mg PO QAM 02/12/25 02/12/25 History release pregabalin 75 mg capsule (Lyrica) 75 mg PO BID 02/12/25 02/12/25 History sennosides 8.6 mg-docusate sodium 2 tab-cap PO BID 02/12/25 02/12/25 History 50 mg tablet (Senna Plus) tramadol 50 mg tablet 50 mg PO Q8H Pain 02/12/25 02/12/25 History trazodone 100 mg tablet 100 mg PO QPM 02/12/25 02/12/25 History warfarin 1 mg tablet 0.5 mg PO QPM 02/12/25 02/12/25 History warfarin 4 mg tablet 4 mg PO QPM 02/12/25 02/12/25 History Patient History Medical History On warfarin therapy Coronary artery disease Surgical History History of heart valve replacement Hx of CABG Social History Smoking Status: Never smoker Second Hand Exposure: No; Do You Dip or Chew Tobacco: No; Tobacco Cessation Education Requested by Patient: No Hx Alcohol Use: No Hx Substance Use: No Preferred Language: Gabonese Communication Ability: Effective Hospice Care Transitions Coordinator Required: No Beliefs That Will Affect Care: None Current Living Situation: [facility] Other Information That Helps Us Care for You: No Feels Safe at Home: Yes Safety Concerns: Feels Safe At This Time Assistive Devices: Cane, Denture - Upper, Denture - Lower, Glasses, Hearing Aid - Bilateral and Wheelchair Physical Exam Physical Exam: General: Alert. nontoxic. Skin: Warm, dry, Head: Atraumatic Ears, nose, mouth and throat: airway patent Cardiovascular: Normal peripheral perfusion Respiratory: no respiratory distress, speaks in full sentences without difficulty Gastrointestinal: Non distended Musculoskeletal: No deformity Results & Data Results & Data Vital Signs (Past 12 Hours) Vital Signs Temp Pulse Pulse Resp BP BP Pulse Ox 02/12/25 12:03 71 15 89/63 L 94 02/12/25 11:30 69 16 88/58 L 92 02/12/25 11:03 79 18 88/50 L 91 02/12/25 10:35 94/54 L 02/12/25 10:35 94/54 L 02/12/25 10:35 67 14 94/54 L 92 02/12/25 10:33 82 17 94 02/12/25 10:30 95/58 L 02/12/25 10:30 95/58 L 02/12/25 10:30 95/58 L 02/12/25 10:30 95/58 L 94 02/12/25 10:25 99/54 L 02/12/25 10:21 88 L 02/12/25 10:21 88 L 02/12/25 10:00 83 15 94 02/12/25 09:55 107/67 02/12/25 09:55 107/67 02/12/25 09:55 107/67 02/12/25 09:51 80 17 89 L 02/12/25 09:50 100/49 L 02/12/25 09:50 100/49 L 02/12/25 09:45 82 13 90 02/12/25 09:45 90 02/12/25 09:43 96/54 L 02/12/25 09:41 83 02/12/25 09:38 86 91/46 L 02/12/25 09:34 18 02/12/25 09:34 02/12/25 09:29 36.4 C L 79 18 91/46 L 91 O2 Del Method O2 Flow Rate 02/12/25 12:03 02/12/25 11:30 02/12/25 11:03 Nasal Cannula 3 02/12/25 10:35 02/12/25 10:35 02/12/25 10:35 Nasal Cannula 2 02/12/25 10:33 02/12/25 10:30 02/12/25 10:30 02/12/25 10:30 02/12/25 10:30 Nasal Cannula 2 02/12/25 10:25 02/12/25 10:21 Room Air 0 02/12/25 10:21 02/12/25 10:00 02/12/25 09:55 02/12/25 09:55 02/12/25 09:55 02/12/25 09:51 02/12/25 09:50 02/12/25 09:50 02/12/25 09:45 02/12/25 09:45 Room Air 02/12/25 09:43 02/12/25 09:41 02/12/25 09:38 02/12/25 09:34 02/12/25 09:34 Room Air 02/12/25 09:29 Room Air Critical Care Results & Data Vital Signs (Past 12 Hours) Vital Signs Temp Pulse Pulse Resp BP BP Pulse Ox 02/12/25 12:03 71 15 89/63 L 94 02/12/25 11:30 69 16 88/58 L 92 02/12/25 11:03 79 18 88/50 L 91 02/12/25 10:35 94/54 L 02/12/25 10:35 94/54 L 02/12/25 10:35 67 14 94/54 L 92 02/12/25 10:33 82 17 94 02/12/25 10:30 95/58 L 02/12/25 10:30 95/58 L 02/12/25 10:30 95/58 L 02/12/25 10:30 95/58 L 94 02/12/25 10:25 99/54 L 02/12/25 10:21 88 L 02/12/25 10:21 88 L 02/12/25 10:00 83 15 94 02/12/25 09:55 107/67 02/12/25 09:55 107/67 02/12/25 09:55 107/67 02/12/25 09:51 80 17 89 L 02/12/25 09:50 100/49 L 02/12/25 09:50 100/49 L 02/12/25 09:45 82 13 90 02/12/25 09:45 90 02/12/25 09:43 96/54 L 02/12/25 09:41 83 02/12/25 09:38 86 91/46 L 02/12/25 09:34 18 02/12/25 09:34 02/12/25 09:29 36.4 C L 79 18 91/46 L 91 O2 Del Method O2 Flow Rate 02/12/25 12:03 02/12/25 11:30 02/12/25 11:03 Nasal Cannula 3 02/12/25 10:35 02/12/25 10:35 02/12/25 10:35 Nasal Cannula 2 02/12/25 10:33 02/12/25 10:30 02/12/25 10:30 02/12/25 10:30 02/12/25 10:30 Nasal Cannula 2 02/12/25 10:25 02/12/25 10:21 Room Air 0 02/12/25 10:21 02/12/25 10:00 02/12/25 09:55 02/12/25 09:55 02/12/25 09:55 02/12/25 09:51 02/12/25 09:50 02/12/25 09:50 02/12/25 09:45 02/12/25 09:45 Room Air 02/12/25 09:43 02/12/25 09:41 02/12/25 09:38 02/12/25 09:34 02/12/25 09:34 Room Air 02/12/25 09:29 Room Air Lab & Micro Results (Past 24 Hours) RBC 3.86 M/uL (4.20-5.40) L 02/12/25 WBC 6.46 K/ul (4.8-10.8) 02/12/25 Hgb 11.4 g/dl (12.0-16.0) L 02/12/25 Hct 35.8 % (37.0-47.0) L 02/12/25 MCV 92.7 fL (80.0-100.0) 02/12/25 MCH 29.5 pg (25.0-34.0) 02/12/25 MCHC 31.8 g/dL (32.0-36.0) L 02/12/25 RDW Standard Deviation 50.7 fL (36.4-46.3) H 02/12/25 RDW Coefficient of Variation 15.0 % (11.5-14.5) H 02/12/25 Plt Count 155 K/uL (130-400) 02/12/25 MPV 11.2 fL (9.4-12.4) 02/12/25 Neutrophils (%) (Auto) 51.8 % 02/12/25 Lymphocytes (%) (Auto) 37.5 % 02/12/25 Monocytes # (Auto) 0.47 K/uL (0.11-0.59) 02/12/25 Eosinophils # (Auto) 0.11 K/uL (0.00-0.50) 02/12/25 Immature Granulocyte % (Auto) 1.4 % 02/12/25 Neutrophils # (Auto) 3.35 K/uL (1.40-6.50) 02/12/25 Lymphocytes # (Auto) 2.42 K/uL (1.20-3.40) 02/12/25 Monocytes # (Auto) 0.47 K/uL (0.11-0.59) 02/12/25 Eosinophils # (Auto) 0.11 K/uL (0.00-0.50) 02/12/25 Basophils # (Auto) 0.02 K/uL (0.00-0.20) 02/12/25 Immature Granulocyte # (Auto) 0.09 K/uL (0.01-0.20) 5 Na 142 mmol/L (136-145) 02/12/25 K 3.4 mmol/L (3.5-5.1) L 02/12/25 Cl 103 mmol/L (98-107) 02/12/25 CO2 33 mmol/L (21-32) H 02/12/25 Anion Gap 6 (3-11) 02/12/25 BUN 15 mg/dl (6-23) 02/12/25 Creatinine 1.07 mg/dl (0.6-1.2) 02/12/25 BUN/Creatinine Ratio 14.0 (10-20) 02/12/25 Glu 159 mg/dl (70-99(Fasting)) H 02/12/25 Ca 8.8 mg/dl (8.6-10.3) 02/12/25 Phosphorus Level 3.7 mg/dl (2.5-4.9) 02/12/25 Total Bilirubin 1.0 mg/dl (0.2-1.0) 02/12/25 AST 33 U/L (13-39) 02/12/25 ALT 22 U/L (7-52) 02/12/25 Alkaline Phosphatase 48 U/L (34-104) 02/12/25 TP 6.2 gm/dl (6.0-8.3) 02/12/25 Albumin 3.9 gm/dl (3.4-5.0) 02/12/25 Globulin 2.3 gm/dl (2.5-4.0) L 02/12/25 Albumin/Globulin Ratio 1.7 (0.9-2) 02/12/25 Mg 1.8 mg/dl (1.7-2.4) 02/12/25 09:42 Calcium Level 8.8 mg/dl (8.6-10.3) 02/12/25 09:42 Prothromb Time International Ratio 1.4 (0.9-1.1) H 02/12/25 09 :42 Diagnostic Findings (Past 24 Hours) Chest X-Ray 02/12/25 09:45 XR chest 1V portable CLINICAL HISTORY: Chest pain, nonspecific COMPARISON STUDY: None FINDINGS: There is cardiac valve repair. There is mild cardiomegaly without pulmonary vascular congestion. No consolidation or pleural effusion seen. No pneumothorax. IMPRESSION: No acute findings. ACT 112: Negative or not required by law. Electronically signed by: Jeremy Godfrey M.D. 02/12/2025 10:[address] 02/12/25 09:[address] WITH CONTRAST CT DOSE: 1172.03 mGy.cm HISTORY: Acute chest and upper back pain. Recent cardiac arrest with CPR chest/back pain, s/p CPR TECHNIQUE: Multiaxial CT images of the chest were performed following the IV administration of 94 cc of Optiray. A dose lowering technique was utilized adhering to the principles of ALARA. COMPARISON: None. FINDINGS: No dominant thyroid nodule or pathologically enlarged lymph nodes. Heart is mildly enlarged. Median sternotomy. Prosthetic aortic and mitral valves. Mild ectasia of the ascending thoracic aorta measures 3.9 cm. Unremarkable pulmonary artery. No pneumothorax, pleural effusion or overt pulmonary edema. Subsegmental bibasilar atelectasis/scarring. There are no suspicious pulmonary nodules or masses. Central airways are patent. Cholecystectomy. Unremarkable soft tissues. Degenerative changes of the shoulders and spine. No acute displaced rib fractures. Acute bilateral anterolateral rib fractures. This includes the right second through seventh ribs with the right fifth rib fracture in two places. Acute nondisplaced fractures of the anterolateral left second through eighth ribs. A few of the fractures are mildly angulated. The left fifth rib is fractured in two places with minimally displaced fracture anteriorly on image 159. No acute sternal fracture identified. IMPRESSION: 1. Acute bilateral rib fractures with the anterior left fifth rib fracture mildly displaced. 2. No pneumothorax. 3. No acute sternal fracture identified. ACT 112: Negative or not required by law. Electronically signed by: Regulo Olsen M.D. 02/12/2025 10:[address] 02/12/25 09:47 CT head/brain wo con CLINICAL HISTORY: syncope. TECHNIQUE: Multiple axial CT images of the head were obtained without contrast. A dose lowering technique was utilized adhering to the principles of ALARA. CT DOSE: 1172 COMPARISON: None FINDINGS: There are globus pallidus and choroid plexus calcifications. No intracranial hemorrhage seen. No mass effect, midline shift, or hydrocephalus. There are a few old lacunar infarctions at the left basal ganglia. There are moderate chronic small vessel ischemic changes. There is severe mucosal thickening at the visualized right maxillary sinus with mild thickening of the right maxillary sinus wall consistent with chronic right maxillary sinusitis. O therwise the visualized paranasal sinuses and mastoid air cells are clear. No skull fracture seen. IMPRESSION: 1. No acute intracranial findings. 2. Chronic right maxillary sinusitis. ACT 112: Negative or not required by law. The above report was generated using voice recognition software. It may contain grammatical, syntax or spelling errors. Electronically signed by: Jeremy Godfrey M.D. 02/12/2025 10:26 AM I & O Totals 24 Hours 02/11/25 02/12/25 02/13/25 06:59 06:59 06:59 Intake Total 600 / 600 Balance 600 / 600 Cumulative 02/12/25 09:29 thru 02/12/25 11:03 Intake Total 600 Balance 600 RT Ventilator Mngmt (Last Documented) Ventilator Ordered Settings Respiratory Rate 15 02/12/25 12:03 Ventilator - PT Measurements Respiratory Rate 15 Coding Level of Care Code 28358 IN/OBS CONSULT LVL 4,60M Diagnoses Closed fracture of multiple ribs of both sides, initial encounter S22.43XA Encounter type: initial encounter Fracture type: closed Laterality: bilateral Syncope and collapse R55 Subtherapeutic international normalized ratio (INR) R79.1 On warfarin therapy Z79.01 Coronary artery disease involving [place] coronary artery of [place] heart, unspecified whether angina present I25.10 Coronary Disease-Associated Artery/Lesion type: [place] artery Solomon vs. transplanted heart: kas[place] heart Associated angina: unspecified whether angina present History of heart valve replacement Z95.2 Hx of CABG Z95.1 DNR (do not resuscitate) discussion Z71.89 Long-term (current) use of anticoagulants, INR goal 2.0-3.0 Z79.01 Sick euthyroidism E07.81 Prolonged Q-T interval on ECG R94.31 (1) Ribs, multiple fractures Encounter type: initial encounter Fracture type: closed Laterality: bilateral Qualified Code(s): S22.43XA - Multiple fractures of ribs, bilateral, initial encounter for closed fracture (5) Coronary artery disease Coronary Disease-Associated Artery/Lesion type: [place] artery Solomon vs. transplanted heart: [place] heart Associated angina: unspecified whether angina present Qualified Code(s): I25.10 - Atherosclerotic heart disease of [place] coronary artery without angina pectoris
[2025-02-12] MEDS: LACTATED RINGER'S 1,000 ML IV ONE (13:35)
--- NOTE | 2025-02-12 13:39 | Electrocardiogram Report ---
Test Reason : Blood Pressure : */* mmHG Vent. Rate : 81 BPM Atrial Rate : * BPM P-R Int : * ms QRS Dur : 118 ms QT Int : 422 ms P-R-T Axes : * -11 216 degrees QTcB Int : 490 ms Atrial fibrillation Left ventricular hypertrophy with QRS widening ( R in aVL ) Poor R wave progression, consider anterior HI vs. lead placement vs. LVH Inferior infarct , age undetermined Abnormal ECG No previous ECGs available Confirmed by Dejon Carlin ([id number]) on 02/12/2025 1:38:37 PM Referred By: Confirmed By: Dejon Carlin
--- NOTE | 2025-02-12 14:08 | XCELERA ---
[id number]
[2025-02-12] MEDS ORDERED: ACETAMINOPHEN 500 MG TAB PO PRN ×2 (14:42→18:19)
[2025-02-12] MEDS ORDERED: NALOXONE HCL 0.4 MG/1 ML VIAL/CARP IV PRN (14:42)
[2025-02-12] MEDS: LIDOCAINE 5% 1 PATCH TD SCH (15:06)
--- NOTE | 2025-02-12 15:55 | Pulmonary Consultation ---
Date of Consultation February 12, 2025 Assessment & Plan (1) Ribs, multiple fractures: Encounter type: initial encounter Fracture type: closed Laterality: bilateral Qualified Code(s): S22.43XA - Multiple fractures of ribs, bilateral, initial encounter for closed fracture Plan Impression: 84-year-old female status post syncopal/presyncopal event with concomitant CPR resulting in multiple bilateral anterior rib fractures. Recommendations: 1. Rib fractures: Supportive care recommended. Recommend aggressive pulmonary toilet including aggressive incentive spirometry. Reviewed with patient and family at bedside on how to use the incentive spirometer. Recommend out of bed to chair and ambulate is much as possible. Risk would be poor pulmonary toilet resulting in pneumonia. The patient understands and is compliant with I-S. Recommend aggressive pain management. Anesthesia consultation for regional block may be appropriate if pain is not able to be adequately controlled. Would wean oxygen as tolerated. 2. Evaluation management the patient's syncopal/presyncopal event per primary admitting service. 3. DNR/DNI status confirmed. Pulmonary will sign off at this point in time. Feel free to contact us with questions or concerns History of Present Illness Attending Physician: Angeline Gallo MD History of Present Illness I spoke to hospitalist to evaluate this patient with multiple rib fractures status post CPR. History is obtained from discussion with the patient as well as family members and review of the electronic medical record. Patient is a 84-year-old female with a history of coronary disease who is visiting from outside the area who suffered a syncopal/presyncopal event while visiting family. Patient was unresponsive for period of time and BLS providers arrived and started CPR. Epinephrine was also administered. Patient was initially hypotensive but pressures improved. She was seen in the emergency room and CT scanning demonstrated multiple bilateral anterior rib fractures which prompted a pulmonary consultation. The patient is currently in bed semirecumbent. She has ice packs on her thorax. She is complaining of some pain but does have pain medications written for. She has an incentive spirometer and in my presence she was able to pull about 1000 L on I-S. She is not really coughing or expectorating phlegm. She does not use oxygen at baseline Allergies Allergy/AdvReac Type Severity Reaction Status Date / Time latex Allergy Rash Verified 02/12/25 11:40 Home Medications Medication Instructions Recorded Confirmed Type acetaminophen 650 mg 650 mg PO QPM 02/12/25 02/12/25 History tablet,extended release ascorbic acid (vitamin C) 500 mg 1,000 mg PO QAM 02/12/25 02/12/25 History tablet (Vitamin C) atorvastatin 40 mg tablet 40 mg PO QPM 02/12/25 02/12/25 History calcium carbonate 500 mg PO QAM 02/12/25 02/12/25 History cholecalciferol (vitamin D3) 125 125 mcg PO QAM 02/12/25 02/12/25 History mcg (5,000 unit) tablet (Vitamin D3) cyanocobalamin (vitamin B-12) 1,000 mcg PO QAM 02/12/25 02/12/25 History 1,000 mcg tablet (Vitamin B-12) duloxetine 60 mg capsule,delayed 60 mg PO QAM 02/12/25 02/12/25 History release ferrous sulfate 325 mg (65 mg 325 mg PO BID 02/12/25 02/12/25 History iron) tablet furosemide 40 mg tablet 40 mg PO QAM 02/12/25 02/12/25 History levothyroxine 25 mcg tablet 25 mcg PO DAILYBB 02/12/25 02/12/25 History melatonin 5 mg tablet 10 mg PO QPM 02/12/25 02/12/25 History metoprolol succinate 50 mg 50 mg PO QAM 02/12/25 02/12/25 History tablet,extended release 24 hr omeprazole 20 mg capsule,delayed 20 mg PO QAM 02/12/25 02/12/25 History release pregabalin 75 mg capsule (Lyrica) 75 mg PO BID 02/12/25 02/12/25 History sennosides 8.6 mg-docusate sodium 2 tab-cap PO BID 02/12/25 02/12/25 History 50 mg tablet (Senna Plus) tramadol 50 mg tablet 50 mg PO Q8H Pain 02/12/25 02/12/25 History trazodone 100 mg tablet 100 mg PO QPM 02/12/25 02/12/25 History warfarin 1 mg tablet 0.5 mg PO QPM 02/12/25 02/12/25 History warfarin 4 mg tablet 4 mg PO QPM 02/12/25 02/12/25 History Patient History Medical History On warfarin therapy Coronary artery disease Surgical History History of heart valve replacement Hx of CABG Social History Smoking Status: Never smoker Second Hand Exposure: No; Do You Dip or Chew Tobacco: No; Tobacco Cessation Education Requested by Patient: No Hx Alcohol Use: No Hx Substance Use: No Preferred Language: Mozambican Communication Ability: Effective 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 No additions or deletions Physical Exam Physical Exam: General: Alert. nontoxic. Skin: Warm, dry, Head: Atraumatic Ears, nose, mouth and throat: airway patent Cardiovascular: Normal peripheral perfusion Respiratory: no respiratory distress, speaks in full sentences without difficulty Gastrointestinal: Non distended Musculoskeletal: No deformity Results & Data Results & Data Vital Signs (Past 12 Hours) Vital Signs Temp Pulse Pulse Resp BP BP Pulse Ox 02/12/25 14:40 02/12/25 14:30 36.5 C 77 16 119/64 100 02/12/25 12:03 71 15 89/63 L 94 02/12/25 11:30 69 16 88/58 L 92 02/12/25 11:03 79 18 88/50 L 91 02/12/25 10:35 94/54 L 02/12/25 10:35 94/54 L 02/12/25 10:35 67 14 94/54 L 92 02/12/25 10:33 82 17 94 02/12/25 10:30 95/58 L 02/12/25 10:30 95/58 L 02/12/25 10:30 95/58 L 02/12/25 10:30 95/58 L 94 02/12/25 10:25 99/54 L 02/12/25 10:21 88 L 02/12/25 10:21 88 L 02/12/25 10:00 83 15 94 02/12/25 09:55 107/67 02/12/25 09:55 107/67 02/12/25 09:55 107/67 02/12/25 09:51 80 17 89 L 02/12/25 09:50 100/49 L 02/12/25 09:50 100/49 L 02/12/25 09:45 82 13 90 02/12/25 09:45 90 02/12/25 09:43 96/54 L 02/12/25 09:41 83 02/12/25 09:38 86 91/46 L 02/12/25 09:34 18 02/12/25 09:34 02/12/25 09:29 36.4 C L 79 18 91/46 L 91 O2 Del Method O2 Flow Rate 02/12/25 14:40 Nasal Cannula 2 02/12/25 14:30 Nasal Cannula 3 02/12/25 12:03 02/12/25 11:30 02/12/25 11:03 Nasal Cannula 3 02/12/25 10:35 02/12/25 10:35 02/12/25 10:35 Nasal Cannula 2 02/12/25 10:33 02/12/25 10:30 02/12/25 10:30 02/12/25 10:30 02/12/25 10:30 Nasal Cannula 2 02/12/25 10:25 02/12/25 10:21 Room Air 0 02/12/25 10:21 02/12/25 10:00 02/12/25 09:55 02/12/25 09:55 02/12/25 09:55 02/12/25 09:51 02/12/25 09:50 02/12/25 09:50 02/12/25 09:45 02/12/25 09:45 Room Air 02/12/25 09:43 02/12/25 09:41 02/12/25 09:38 02/12/25 09:34 02/12/25 09:34 Room Air 02/12/25 09:29 Room Air Critical Care Results & Data Vital Signs (Past 12 Hours) Vital Signs Temp Pulse Pulse Resp BP BP Pulse Ox 02/12/25 14:40 02/12/25 14:30 36.5 C 77 16 119/64 100 02/12/25 12:03 71 15 89/63 L 94 02/12/25 11:30 69 16 88/58 L 92 02/12/25 11:03 79 18 88/50 L 91 02/12/25 10:35 94/54 L 02/12/25 10:35 94/54 L 02/12/25 10:35 67 14 94/54 L 92 02/12/25 10:33 82 17 94 02/12/25 10:30 95/58 L 02/12/25 10:30 95/58 L 02/12/25 10:30 95/58 L 02/12/25 10:30 95/58 L 94 02/12/25 10:25 99/54 L 02/12/25 10:21 88 L 02/12/25 10:21 88 L 02/12/25 10:00 83 15 94 02/12/25 09:55 107/67 02/12/25 09:55 107/67 02/12/25 09:55 107/67 02/12/25 09:51 80 17 89 L 02/12/25 09:50 100/49 L 02/12/25 09:50 100/49 L 02/12/25 09:45 82 13 90 02/12/25 09:45 90 02/12/25 09:43 96/54 L 02/12/25 09:41 83 02/12/25 09:38 86 91/46 L 02/12/25 09:34 18 02/12/25 09:34 02/12/25 09:29 36.4 C L 79 18 91/46 L 91 O2 Del Method O2 Flow Rate 02/12/25 14:40 Nasal Cannula 2 02/12/25 14:30 Nasal Cannula 3 02/12/25 12:03 02/12/25 11:30 02/12/25 11:03 Nasal Cannula 3 02/12/25 10:35 02/12/25 10:35 02/12/25 10:35 Nasal Cannula 2 02/12/25 10:33 02/12/25 10:30 02/12/25 10:30 02/12/25 10:30 02/12/25 10:30 Nasal Cannula 2 02/12/25 10:25 02/12/25 10:21 Room Air 0 02/12/25 10:21 02/12/25 10:00 02/12/25 09:55 02/12/25 09:55 02/12/25 09:55 02/12/25 09:51 02/12/25 09:50 02/12/25 09:50 02/12/25 09:45 02/12/25 09:45 Room Air 02/12/25 09:43 02/12/25 09:41 02/12/25 09:38 02/12/25 09:34 02/12/25 09:34 Room Air 02/12/25 09:29 Room Air Lab & Micro Results (Past 24 Hours) RBC 3.86 M/uL (4.20-5.40) L 02/12/25 WBC 6.46 K/ul (4.8-10.8) 02/12/25 Hgb 11.4 g/dl (12.0-16.0) L 02/12/25 Hct 35.8 % (37.0-47.0) L 02/12/25 MCV 92.7 fL (80.0-100.0) 02/12/25 MCH 29.5 pg (25.0-34.0) 02/12/25 MCHC 31.8 g/dL (32.0-36.0) L 02/12/25 RDW Standard Deviation 50.7 fL (36.4-46.3) H 02/12/25 RDW Coefficient of Variation 15.0 % (11.5-14.5) H 02/12/25 Plt Count 155 K/uL (130-400) 02/12/25 MPV 11.2 fL (9.4-12.4) 02/12/25 Neutrophils (%) (Auto) 51.8 % 02/12/25 Lymphocytes (%) (Auto) 37.5 % 02/12/25 Monocytes # (Auto) 0.47 K/uL (0.11-0.59) 02/12/25 Eosinophils # (Auto) 0.11 K/uL (0.00-0.50) 02/12/25 Immature Granulocyte % (Auto) 1.4 % 02/12/25 Neutrophils # (Auto) 3.35 K/uL (1.40-6.50) 02/12/25 Lymphocytes # (Auto) 2.42 K/uL (1.20-3.40) 02/12/25 Monocytes # (Auto) 0.47 K/uL (0.11-0.59) 02/12/25 Eosinophils # (Auto) 0.11 K/uL (0.00-0.50) 02/12/25 Basophils # (Auto) 0.02 K/uL (0.00-0.20) 02/12/25 Immature Granulocyte # (Auto) 0.09 K/uL (0.01-0.20) 5 Na 142 mmol/L (136-145) 02/12/25 K 3.4 mmol/L (3.5-5.1) L 02/12/25 Cl 103 mmol/L (98-107) 02/12/25 CO2 33 mmol/L (21-32) H 02/12/25 Anion Gap 6 (3-11) 02/12/25 BUN 15 mg/dl (6-23) 02/12/25 Creatinine 1.07 mg/dl (0.6-1.2) 02/12/25 BUN/Creatinine Ratio 14.0 (10-20) 02/12/25 Glu 159 mg/dl (70-99(Fasting)) H 02/12/25 Ca 8.8 mg/dl (8.6-10.3) 02/12/25 Phosphorus Level 3.7 mg/dl (2.5-4.9) 02/12/25 Total Bilirubin 1.0 mg/dl (0.2-1.0) 02/12/25 AST 33 U/L (13-39) 02/12/25 ALT 22 U/L (7-52) 02/12/25 Alkaline Phosphatase 48 U/L (34-104) 02/12/25 TP 6.2 gm/dl (6.0-8.3) 02/12/25 Albumin 3.9 gm/dl (3.4-5.0) 02/12/25 Globulin 2.3 gm/dl (2.5-4.0) L 02/12/25 Albumin/Globulin Ratio 1.7 (0.9-2) 02/12/25 Mg 1.8 mg/dl (1.7-2.4) 02/12/25 09:42 Calcium Level 8.8 mg/dl (8.6-10.3) 02/12/25 09:42 Prothromb Time International Ratio 1.4 (0.9-1.1) H 02/12/25 09 :42 Diagnostic Findings (Past 24 Hours) Chest X-Ray 02/12/25 09:45 XR chest 1V portable CLINICAL HISTORY: Chest pain, nonspecific COMPARISON STUDY: None FINDINGS: There is cardiac valve repair. There is mild cardiomegaly without pulmonary vascular congestion. No consolidation or pleural effusion seen. No pneumothorax. IMPRESSION: No acute findings. ACT 112: Negative or not required by law. Electronically signed by: Jeremy Godfrey M.D. 02/12/2025 10:[address] 02/12/25 09:[address] WITH CONTRAST CT DOSE: 1172.03 mGy.cm HISTORY: Acute chest and upper back pain. Recent cardiac arrest with CPR chest/back pain, s/p CPR TECHNIQUE: Multiaxial CT images of the chest were performed following the IV administration of 94 cc of Optiray. A dose lowering technique was utilized adhering to the principles of ALARA. COMPARISON: None. FINDINGS: No dominant thyroid nodule or pathologically enlarged lymph nodes. Heart is mildly enlarged. Median sternotomy. Prosthetic aortic and mitral valves. Mild ectasia of the ascending thoracic aorta measures 3.9 cm. Unremarkable pulmonary artery. No pneumothorax, pleural effusion or overt pulmonary edema. Subsegmental bibasilar atelectasis/scarring. There are no suspicious pulmonary nodules or masses. Central airways are patent. Cholecystectomy. Unremarkable soft tissues. Degenerative changes of the shoulders and spine. No acute displaced rib fractures. Acute bilateral anterolateral rib fractures. This includes the right second through seventh ribs with the right fifth rib fracture in two places. Acute nondisplaced fractures of the anterolateral left second through eighth ribs. A few of the fractures are mildly angulated. The left fifth rib is fractured in two places with minimally displaced fracture anteriorly on image 159. No acute sternal fracture identified. IMPRESSION: 1. Acute bilateral rib fractures with the anterior left fifth rib fracture mildly displaced. 2. No pneumothorax. 3. No acute sternal fracture identified. ACT 112: Negative or not required by law. Electronically signed by: Regulo Olsen M.D. 02/12/2025 10:[address] 02/12/25 09:47 CT head/brain wo con CLINICAL HISTORY: syncope. TECHNIQUE: Multiple axial CT images of the head were obtained without contrast. A dose lowering technique was utilized adhering to the principles of ALARA. CT DOSE: 1172 COMPARISON: None FINDINGS: There are globus pallidus and choroid plexus calcifications. No intracranial hemorrhage seen. No mass effect, midline shift, or hydrocephalus. There are a few old lacunar infarctions at the left basal ganglia. There are moderate chronic small vessel ischemic changes. There is severe mucosal thickening at the visualized right maxillary sinus with mild thickening of the right maxillary sinus wall consistent with chronic right maxillary sinusitis. Otherwise the visualized paranasal sinuses and mastoid air cells are clear. No skull fracture seen. IMPRESSION: 1. No acute intracranial findings. 2. Chronic right maxillary sinusitis. ACT 112: Negative or not required by law. The above report was generated using voice recognition software. It may contain grammatical, syntax or spelling errors. Electronically signed by: Jeremy Godfrey M.D. 02/12/2025 10:26 AM I & O Totals 24 Hours 02/11/25 02/12/25 02/13/25 06:59 06:59 06:59 Intake Total 1600 / 1600 Balance 1600 / 1600 Cumulative 02/12/25 09:29 thru 02/12/25 14:43 Intake Total 1600 Balance 1600 RT Ventilator Mngmt (Last Documented) Ventilator Ordered Settings Respiratory Rate 16 02/12/25 14:30 Ventilator - PT Measurements Respiratory Rate 16 PG Care Time/CCT Total # of Minutes Spent Total Time Spent with Patient: Total time spent is greater than 50% in coordination of care (as documented) at patient's floor/unit and/or counseling patient: Coding Level of Care Code 91093 INT INP/OBS CARE 2/55MIN Diagnoses Closed fracture of multiple ribs of both sides, initial encounter S22.43XA Encounter type: initial encounter Fracture type: closed Laterality: bilateral
[2025-02-12 17:29] LABS: Appearance Urine Clear (Clear); Glucose Urine UA Negative (Negative)
[2025-02-12] MEDS ORDERED: MoRPHine SULFATE 2 MG/ML CARP IV PRN (18:19)
[2025-02-12] MEDS: PREGABALIN 75 MG CAP PO SCH (18:39)
[2025-02-12] MEDS: DOCUSATE SODIUM/SENNA 50/8.6MG TAB PO SCH (20:46)
[2025-02-12] MEDS: MELATONIN 3 MG TAB PO SCH (20:46)
[2025-02-12] MEDS: ACETAMINOPHEN 500 MG TAB PO SCH (20:47)
[2025-02-12] MEDS: REMOVE LIDODERM PATCH SCH (20:48)
[2025-02-12] MEDS: ATORVASTATIN 40 MG TAB PO SCH (20:48)
[2025-02-12] MEDS: HYDROmorphone INJ 0.5 MG/0.5 ML SYR IV PRN (20:55)
[2025-02-13] MEDS: LEVOTHYROXINE SODIUM 25 MCG TABLET PO SCH (05:50)
[2025-02-13 06:39] LABS: Hematocrit (blood only) 33.0 % (37.0-47.0); Hemoglobin 10.5 g/dl (12.0-16.0); Mean Corpuscular Hemoglobin 29.5 pg (25.0-34.0); Mean Corpuscular Volume 92.7 fL (80.0-100.0); Platelet Count 123 K/uL (130-400); RDW Standard Deviation 50.4 fL (36.4-46.3); Red Blood Count 3.56 M/uL (4.20-5.40); White Blood Count 4.83 K/ul (4.8-10.8)
[2025-02-13 06:56] LABS: Anion Gap 3.0 (3-11); Blood Urea Nitrogen 10.0 mg/dl (6-23); Calcium 8.7 mg/dl (8.6-10.3); Carbon Dioxide 32.0 mmol/L (21-32); Chloride 107.0 mmol/L (98-107); Creatinine Clr Calc Pharmacy 46.1 ml/min; Glucose 94.0 mg/dl (70-99(Fasting)); Magnesium 1.8 mg/dl (1.7-2.4); Potassium 3.5 mmol/L (3.5-5.1); Sodium 142.0 mmol/L (136-145)
[2025-02-13] MEDS: METOPROLOL SUCC 50MG EXT REL TAB PO SCH (08:18)
[2025-02-13] MEDS ORDERED: POLYETHYLENE (MIRALAX) 17 GM PACK PO PRN (10:15)
--- NOTE | 2025-02-13 12:53 | Cardiology Consultation ---
Date of Consultation February 13, 2025 Assessment & Plan (1) Syncope and collapse: -Etiology of her syncope not certain, however, favor a vasovagal event. -Echocardiogram notes normal left ventricular systolic function and a properly functioning bioprosthetic valves. -equipment monitor phototypesetting notes no pauses or inappropriate bradycardias. No ventricular dysrhythmias. -The fact she remained upright may be a factor in her prolonged event and the need for CPR. -Stable for hospital discharge. -Discussed with Dr. Gallo. -Consider outpatient event monitor. (2) Coronary artery disease: -s/p CABG, details unknown. -Continue metoprolol and atorvastatin. (3) History of heart valve replacement: -Bioprosthetic valve in the aortic position and mitral position. -Functioning properly on current echocardiogram. History of Present Illness Attending Physician: Angeline Gallo MD History of Present Illness Mrs. Vance is an 84-year-old female admitted yesterday after a apparent syncopal event and chest compressions. This consultation was ordered to assist in her cardiac management. 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 The patient was in her usual state of health until the morning of presentation. According to her sister, they were all seated at the table eating breakfast. The patient finished her oatmeal and then began to reach for her coffee. The sister explains that the patient's head was slowly falling forward towards the table and a jerking type motion. The patient's sister started up and went to the patient's side of the table. The patient "passed out" and leaned against her sisters side. The patient remained upright and was unresponsive. 911 was called and arrived immediately. She was then placed on the floor and received CPR. The patient responded and awoke. The patient had been complaining of being "sweaty" before the event. She does carry a history of coronary artery disease having undergone CABG in [place], [place]. She also apparently had 2 tissue valves placed, one in the aortic position, and the other in the mitral position. She also carries a history of permanent atrial fibrillation and is maintained on Coumadin. Currently, patient is resting comfortably in the bedside chair eating her lunch. Past medical and surgical history 1. Coronary artery diseasesee above 2. Bioprosthetic AVR 3. Bioprosthetic MVR 4. Permanent atrial fibrillation 5. Hypertension 6. Hypercholesterolemia 7. GERD 8. Hypothyroidism 9. Iron deficiency 10. Vitamin D deficiency 11. Vitamin B deficiency Social history , lives alone. Resides in the [facility], grew up in [place] No tobacco or alcohol Family history Noncontributory Review of system A 10 point review of system was undertaken and negative except that described above. Allergies Allergy/AdvReac Type Severity Reaction Status Date / Time latex Allergy Rash Verified 02/12/25 11:40 Home Medications Medication Instructions Recorded Confirmed Type acetaminophen 650 mg 650 mg PO QPM 02/12/25 02/12/25 History tablet,extended release ascorbic acid (vitamin C) 500 mg 1,000 mg PO QAM 02/12/25 02/12/25 History tablet (Vitamin C) atorvastatin 40 mg tablet 40 mg PO QPM 02/12/25 02/12/25 History calcium carbonate 500 mg PO QAM 02/12/25 02/12/25 History cholecalciferol (vitamin D3) 125 125 mcg PO QAM 02/12/25 02/12/25 History mcg (5,000 unit) tablet (Vitamin D3) cyanocobalamin (vitamin B-12) 1,000 mcg PO QAM 02/12/25 02/12/25 History 1,000 mcg tablet (Vitamin B-12) duloxetine 60 mg capsule,delayed 60 mg PO QAM 02/12/25 02/12/25 History release ferrous sulfate 325 mg (65 mg 325 mg PO BID 02/12/25 02/12/25 History iron) tablet furosemide 40 mg tablet 40 mg PO QAM 02/12/25 02/12/25 History levothyroxine 25 mcg tablet 25 mcg PO DAILYBB 02/12/25 02/12/25 History melatonin 5 mg tablet 10 mg PO QPM 02/12/25 02/12/25 History metoprolol succinate 50 mg 50 mg PO QAM 02/12/25 02/12/25 History tablet,extended release 24 hr omeprazole 20 mg capsule,delayed 20 mg PO QAM 02/12/25 02/12/25 History release pregabalin 75 mg capsule (Lyrica) 75 mg PO BID 02/12/25 02/12/25 History sennosides 8.6 mg-docusate sodium 2 tab-cap PO BID 02/12/25 02/12/25 History 50 mg tablet (Senna Plus) tramadol 50 mg tablet 50 mg PO Q8H Pain 02/12/25 02/12/25 History trazodone 100 mg tablet 100 mg PO QPM 02/12/25 02/12/25 History warfarin 1 mg tablet 0.5 mg PO QPM 02/12/25 02/12/25 History warfarin 4 mg tablet 4 mg PO QPM 02/12/25 02/12/25 History Patient History Medical History On warfarin therapy Coronary artery disease Surgical History History of heart valve replacement Hx of CABG Social History Smoking Status: Never smoker Second Hand Exposure: No; Do You Dip or Chew Tobacco: No; Hx Alcohol Use: No Hx Substance Use: No Preferred Language: Ukrainian Communication Ability: Effective Charting Clerk Required: No Beliefs That Will Affect Care: None Current Living Situation: Residential Feels Safe at Home: Yes Assistive Devices: Walker Physical Exam Physical Exam: In general this is a well-developed well-nourished white female in no acute distress. HEENT exam is negative. Neck reveals normal carotid upstrokes without bruits. Jugular venous pressure is flat at 90. There is no thyromegaly. Cardiovascular exam reveals a regular rhythm with distant heart sounds. No obvious murmurs. Lungs are clear without rales, rhonchi, or wheezes. Chest reveals well-healed midline scar. Abdomen is soft without bruits. Extremities reveal intact radial artery and posterior tibial pulses bilaterally. There is no peripheral edema. Results & Data Vital Signs (Past 12 Hours) Vital Signs Temp Pulse Pulse Resp BP Pulse Ox O2 Del Method 02/13/25 11:00 36.7 C 79 20 129/71 97 Nasal Cannula 02/13/25 07:57 36.7 C 87 18 125/85 97 Nasal Cannula 02/13/25 07:56 Nasal Cannula 02/13/25 07:22 81 02/13/25 03:01 36.6 C 71 18 119/78 96 Nasal Cannula O2 Flow Rate 02/13/25 11:00 1 02/13/25 07:57 1 02/13/25 07:56 1 02/13/25 07:22 02/13/25 03:01 1 Laboratory Results CBC notes hemoglobin of 10.5, hematocrit 33, white count 4.8, platelet count 123,000. Electrolytes are normal. Initial high-sensitivity troponin was 335 with follow-up values of 1177, 1193, 710, and 482. INR is subtherapeutic at 1.4. Diagnostic Findings Echocardiogram notes normal left ventricular systolic function without wall motion abnormalities. An estimated left trickle ejection fraction is 60 to 65%. There is moderate LVH and properly functioning aortic and mitral bioprosthetic valves. There is moderate tricuspid regurgitation. equipment monitor phototypesetting notes atrial fibrillation without significant pauses. PG Care Time/CCT Total # of Minutes Spent Total Time Spent with Patient: Total time spent is greater than 50% in coordination of care (as documented) at patient's floor/unit and/or counseling patient: Coding Level of Care Code 09423 INT INP/OBS CARE 3/75MIN Diagnoses Syncope and collapse R55 Coronary artery disease involving tejon coronary artery of tejon heart, unspecified whether angina present I25.10 Coronary Disease-Associated Artery/Lesion type: tejon artery [place] vs. transplanted heart: tejon heart Associated angina: unspecified whether angina present History of heart valve replacement Z95.2 (2) Coronary artery disease Coronary Disease-Associated Artery/Lesion type: [place] artery [place] vs. transplanted heart: tejon heart Associated angina: unspecified whether angina present Qualified Code(s): I25.10 - Atherosclerotic heart disease of tejon coronary artery without angina pectoris
--- NOTE | 2025-02-13 14:02 | XRay Report ---
XR chest 1V portable CLINICAL HISTORY: recheck rib fx, r/o effusion COMPARISON STUDY: 02/12/2025 FINDINGS: Stable cardiac valve repair. Stable cardiomegaly without pulmonary vascular congestion. No consolidation or pleural effusion seen. No pneumothorax. Rib fractures have stable alignment. IMPRESSION: Stable exam. ACT 112: Negative or not required by law. Electronically signed by: Jeremy Godfrey M.D. 02/13/2025 2:01 PM
--- NOTE | 2025-02-13 16:35 | Hospitalist Progress Note ---
Date of Service February 13, 2025 Assessment & Plan (1) Cardiac arrest: (2) H/O prosthetic mitral valve: (3) Ribs, multiple fractures: (4) Atrial fibrillation: (5) Hypothyroid: Plan Aura is an 84 F with a PMHx of afib, HLD, hypothyroid, GERD, and CHF who presents to hospital after possible outside cardiac arrest. #Cardiac arrest - possibel arrest vs syncopal event at home, had one round of compressions and then obtained ROSC in the field. Troponin peaked 1177 now downtrending, likely demand ischemia from syncope/possible rest. Echo ordered - EF 60 to 65%, no regional wall motion abnormalities, moderate concentric LVH. Prosthetic mitral valve is well-seated. Cardiology consultedmore likely vasovagal event, consider outpatient event monitor PT/OT recommend rehab, case management following #Rib fractures- Secondary to CPR Ribs 2 through 7 on the right, ribs 2 through 8 on the left. Initially plan was to admit to the ICU, however patient declined any ICU level care. Remains a DNR/DNI, would not want vasopressors. Admitted to PCU and pulmonology was consulted - recommend supportive care aggressive pulmonary toilet with incentive spirometry, ambulation as tolerated. If pain is not controlled recommend anesthesia consultation for regional block. Wean oxygen as tolerated, baseline is room air Pain control: Scheduled Tylenol, as needed Tylenol, utilizing IV Dilaudid for breakthrough pain with adequate relief, has not tolerated morphine in the past. Will trial p.o. Dilaudid for oral option. Continue home schedule tramadol repeat cxr 02/13 stable fractures - no effusions #A-fib on warfarin Also with prosthetic mitral valve Continue metoprolol and statin resume Coumadin 02/13 AM INR. #mental health - continue cymbalta #hypothyroid - continue synthroid TSH elevated but with acute events recommend recheck outpatient, no dose adjustments made dispo: continued patient stay on the PCU DVT prophylaxis: resume Coumadin, Family updated at bedside 02/12 & 02/13 Admission and Anticipated Discharge Date Admission Date: February 12, 2025 Supervising Physician Co-Signing Physician Notes PA Supervision Note: I did not personally see or examine the patient today, but I verified all [place] points of ISREAL Boyd's assessment and plan with the following exceptions/additions: None Subjective patient seen this morning, multiple family members at bedside. States that she is doing pretty well with pain control, gets worse with movement but is manageable. We discussed the need to transition to oral pain medication, she was agreeable to try oral Dilaudid. Has not moved her bowels. No shortness of breath telemetry A-fib 80s and 90s Review of Systems Review of Systems: All systems reviewed & are unremarkable except as noted in Subjective Physical Exam Physical Exam: General: NAD, VS as above Resp: normal respiratory effort, lungs clear to auscultation chest - no bruising or obvious deformity, , no evidence of flail chest CV: A-fib, no murmur, Abd: normal bowel sounds, non tender, no hepatosplenomegaly Extremities: Moves all extremities, no edema Neuro: A&O x3, Skin: intact, no lesions noted Results & Data Results & Data Vital Signs (Past 12 Hours) Vital Signs Temp Pulse Pulse Resp BP Pulse Ox O2 Del Method 02/13/25 14:42 97.9 F 80 18 118/63 96 Nasal Cannula 02/13/25 14:00 67 02/13/25 11:00 98.1 F 79 20 129/71 97 Nasal Cannula 02/13/25 07:57 98.1 F 87 18 125/85 97 Nasal Cannula 02/13/25 07:56 Nasal Cannula 02/13/25 07:22 81 O2 Flow Rate 02/13/25 14:42 1 02/13/25 14:00 02/13/25 11:00 1 02/13/25 07:57 1 02/13/25 07:56 1 02/13/25 07:22 Laboratory Results CBC and chemistry reviewed Troponin reviewed Diagnostic Findings repeat chest x-ray reviewed PG Care Time/CCT Total # of Minutes Spent Total Time Spent with Patient: Total time spent is greater than 50% in coordination of care (as documented) at patient's floor/unit and/or counseling patient: Coding Level of Care Code 00186 SUB INP/OBS CARE 3/50MIN Diagnoses Cardiac arrest I46.9 H/O prosthetic mitral valve Z95.2 Closed fracture of multiple ribs of both sides, initial encounter S22.43XA Encounter type: initial encounter Fracture type: closed Laterality: bilateral Atrial fibrillation I48.91 Atrial fibrillation type: unspecified Hypothyroid E03.9 (3) Ribs, multiple fractures Encounter type: initial encounter Fracture type: closed Laterality: bilateral Qualified Code(s): S22.43XA - Multiple fractures of ribs, bilateral, initial encounter for closed fracture (4) Atrial fibrillation Atrial fibrillation type: unspecified Qualified Code(s): I48.91 - Unspecified atrial fibrillation
[2025-02-13] MEDS: WARFARIN SOD 4 MG TAB PO SCH (16:37)
[2025-02-13] MEDS: WARFARIN SOD 0.5 MG TAB PO SCH (16:37)
[2025-02-14 07:13] LABS: Hematocrit (blood only) 30.3 % (37.0-47.0); Hemoglobin 9.8 g/dl (12.0-16.0); Mean Corpuscular Hemoglobin 30.0 pg (25.0-34.0); Mean Corpuscular Volume 92.7 fL (80.0-100.0); Platelet Count 128 K/uL (130-400); RDW Standard Deviation 50.9 fL (36.4-46.3); Red Blood Count 3.27 M/uL (4.20-5.40); White Blood Count 4.59 K/ul (4.8-10.8)
[2025-02-14 07:35] LABS: Anion Gap 4.0 (3-11); Blood Urea Nitrogen 12.0 mg/dl (6-23); Calcium 8.8 mg/dl (8.6-10.3); Carbon Dioxide 32.0 mmol/L (21-32); Chloride 106.0 mmol/L (98-107); Creatinine Clr Calc Pharmacy 48.0 ml/min; Glucose 84.0 mg/dl (70-99(Fasting)); Potassium 3.7 mmol/L (3.5-5.1); Sodium 142.0 mmol/L (136-145)
[2025-02-14 07:45] LABS: INR 1.1 (0.9-1.1); Prothrombin Time 12.2 Seconds (9.0-12.0)
[2025-02-14] MEDS ORDERED: ENOXAPARIN 1 MG/KG SQ SCH (08:45)
[2025-02-14] MEDS: ENOXAPARIN INJ 60 MG/0.6 ML SYR SQ SCH (09:11)
--- NOTE | 2025-02-14 10:39 | Cardiology Progress Note ---
Date of Service February 14, 2025 Assessment & Plan (1) Syncope and collapse: Plan: -Etiology of her syncope not certain, however, favor a vasovagal event. -Echocardiogram notes normal left ventricular systolic function. -radiation monitor notes no pauses or inappropriate bradycardias. No ventricular dysrhythmias. -The fact she remained upright may be a factor in her prolonged event and the need for CPR. -Stable for hospital discharge. -Consider outpatient event monitor. (2) Coronary artery disease: Plan: -s/p CABG, details unknown. -Continue metoprolol and atorvastatin. (3) History of heart valve replacement: Plan: -Bioprosthetic valve in the aortic position and mitral position. -Functioning properly on current echocardiogram. Admission and Anticipated Discharge Date Admission Date: February 12, 2025 Subjective The patient is resting comfortably in bed without complaints of chest pain or dyspnea. She is anxious for hospital discharge. Physical Exam Physical Exam: In general this is a well-developed well-nourished white female in no acute distress. HEENT exam is negative. Neck reveals normal carotid upstrokes without bruits. Jugular venous pressure is flat at 90. There is no thyromegaly. Cardiovascular exam reveals a regular rhythm with distant heart sounds. No obvious murmurs. Lungs are clear without rales, rhonchi, or wheezes. Chest reveals well-healed midline scar. Abdomen is soft without bruits. Extremities reveal intact radial artery and posterior tibial pulses bilaterally. There is no peripheral edema. Results & Data Vital Signs (Past 12 Hours) Vital Signs Temp Pulse Pulse Resp BP Pulse Ox O2 Del Method 02/14/25 10:21 Nasal Cannula 02/14/25 08:00 36.8 C 66 18 101/66 96 Nasal Cannula 02/14/25 03:35 95/65 L 02/14/25 03:03 36.7 C 77 18 90/61 L 92 Nasal Cannula 02/14/25 00:17 73 02/13/25 23:01 36.7 C 76 18 110/69 93 Nasal Cannula O2 Flow Rate 02/14/25 10:21 1 02/14/25 08:00 2 02/14/25 03:35 02/14/25 03:03 2 02/14/25 00:17 02/13/25 23:01 2 Diagnostic Findings radiation monitor notes rate controlled atrial fibrillation. No pauses or inappropriate bradycardias. PG Care Time/CCT Total # of Minutes Spent Total Time Spent with Patient: Total time spent is greater than 50% in coordination of care (as documented) at patient's floor/unit and/or counseling patient: Coding Level of Care Code 36618 SUB INP/OBS CARE 3/50MIN Diagnoses Syncope and collapse R55 Coronary artery disease involving citizen [place] coronary artery of [place] heart, unspecified whether angina present I25.10 Coronary Disease-Associated Artery/Lesion type: citizen [place] artery [place] vs. transplanted heart: citizen [place] heart Associated angina: unspecified whether angina present History of heart valve replacement Z95.2 (2) Coronary artery disease Coronary Disease-Associated Artery/Lesion type: citizen [place] artery [place] vs. transplanted heart: citizen [place] heart Associated angina: unspecified whether angina present Qualified Code(s): I25.10 - Atherosclerotic heart disease of citizen [place] coronary artery without angina pectoris
--- NOTE | 2025-02-14 10:42 | Hospitalist Progress Note ---
Date of Service February 14, 2025 Assessment & Plan (1) Cardiac arrest: (2) H/O prosthetic mitral valve: (3) Ribs, multiple fractures: (4) Atrial fibrillation: (5) Hypothyroid: Plan Aura is an 84 F with a PMHx of afib, HLD, hypothyroid, GERD, and CHF who presents to hospital after possible outside cardiac arrest. #Cardiac arrest - possible arrest vs syncopal event at home, had one round of compressions and then obtained ROSC in the field. Troponin peaked 1177 now downtrending, likely demand ischemia from syncope/possible arrest. Echo ordered - EF 60 to 65%, no regional wall motion abnormalities, moderate concentric LVH. Prosthetic mitral valve is well-seated. Cardiology consultedmore likely vasovagal event, consider outpatient event monitor PT/OT recommend rehab, case management following #Rib fractures- Secondary to CPR Ribs 2 through 7 on the right, ribs 2 through 8 on the left. Initially plan was to admit to the ICU, however patient declined any ICU level care. Remains a DNR/DNI, would not want vasopressors. Admitted to PCU and pulmonology was consulted - recommend supportive care aggressive pulmonary toilet with incentive spirometry, ambulation as tolerated. If pain is not controlled recommend anesthesia consultation for regional block. Wean oxygen as tolerated, baseline is room air Pain control: Scheduled Tylenol, as needed Tylenol. Continue home schedule tramadol. PRN PO dilaudid repeat cxr 02/13 stable fractures - no effusions #Anemia-hemoglobin slowly trended down to 9.8 but no evidence of hemothorax on CXR. Okay to bridge with Lovenox - Follow CBC #A-fib on warfarin Also with prosthetic mitral valve Continue metoprolol and statin resume Coumadin 02/13, INR 1.1 - add bridging lovenox AM INR. #mental health - continue cymbalta #hypothyroid - continue synthroid TSH elevated but with acute events recommend recheck outpatient, no dose adjustments made dispo: continued patient stay on the PCU for cardiac monitoring, weaning oxygen DVT prophylaxis: resume Coumadin, bridging lovenox Family updated at bedside 02/12 & 02/13 Admission and Anticipated Discharge Date Admission Date: February 12, 2025 Supervising Physician Co-Signing Physician Notes PA Supervision Note: I did not personally see or examine the patient today, but I verified all [place]af[place] points of PA Malackowski's assessment and plan with the following exceptions/additions: None Subjective Patient seen sitting up in bed, reports more pain overnight, but does feel that pain was better yesterday moved her bowels yesterday, otherwise no complaints Review of Systems Review of Systems: All systems reviewed & are unremarkable except as noted in Subjective Physical Exam Physical Exam: General: NAD, VS as above Resp: normal respiratory effort, lungs clear to auscultation chest - no bruising or obvious deformity, , no evidence of flail chest CV: A-fib, no murmur, Abd: normal bowel sounds, non tender, no hepatosplenomegaly Extremities: Moves all extremities, no edema Neuro: A&O x3, Skin: intact, no lesions noted Results & Data Results & Data Vital Signs (Past 12 Hours) Vital Signs Temp Pulse Pulse Resp BP Pulse Ox O2 Del Method 02/14/25 10:21 Nasal Cannula 02/14/25 08:00 98.2 F 66 18 101/66 96 Nasal Cannula 02/14/25 03:35 95/65 L 02/14/25 03:03 98.1 F 77 18 90/61 L 92 Nasal Cannula 02/14/25 00:17 73 02/13/25 23:01 98.1 F 76 18 110/69 93 Nasal Cannula O2 Flow Rate 02/14/25 10:21 1 02/14/25 08:00 2 02/14/25 03:35 02/14/25 03:03 2 02/14/25 00:17 02/13/25 23:01 2 Laboratory Results cbc, chemistry and INR reviewed PG Care Time/CCT Total # of Minutes Spent Total Time Spent with Patient: Total time spent is greater than 50% in coordination of care (as documented) at patient's floor/unit and/or counseling patient: Coding Level of Care Code 69731 SUB INP/OBS CARE 2/35MIN Diagnoses Cardiac arrest I46.9 H/O prosthetic mitral valve Z95.2 Closed fracture of multiple ribs of both sides, initial encounter S22.43XA Encounter type: initial encounter Fracture type: closed Laterality: bilateral Atrial fibrillation I48.91 Atrial fibrillation type: unspecified Hypothyroid E03.9 (3) Ribs, multiple fractures Encounter type: initial encounter Fracture type: closed Laterality: bilateral Qualified Code(s): S22.43XA - Multiple fractures of ribs, bilateral, initial encounter for closed fracture (4) Atrial fibrillation Atrial fibrillation type: unspecified Qualified Code(s): I48.91 - Unspecified atrial fibrillation
[2025-02-15 07:57] LABS: INR 1.4 (0.9-1.1); Prothrombin Time 14.6 Seconds (9.0-12.0)
--- NOTE | 2025-02-15 11:53 | Discharge Summary ---
Discharge Summary Date of Service February 15, 2025 Principal Dx & Hospital Course #1 = Principal Diagnosis (1) Cardiac arrest: (2) H/O prosthetic mitral valve: (3) Ribs, multiple fractures: (4) Atrial fibrillation: (5) Hypothyroid: Plan #Cardiac arrest vs syncope Aura is an 84 F with a PMHx of afib, HLD, hypothyroid, GERD, and CHF who presents to hospital after possible outside cardiac arrest - possible arrest vs syncopal event at home, had one round of compressions and then obtained ROSC in the field. Troponin peaked 1177 now downtrending, likely demand ischemia from syncope/possible arrest. Echo ordered - EF 60 to 65%, no regional wall motion abnormalities, moderate concentric LVH. Prosthetic mitral valve is well-seated. Cardiology consultedmore likely vasovagal event, consider outpatient event mo nitor. Will need local outpatient cardiology follow up - lasix changed to PRN PT/OT recommend rehab - return to her facility for rehab today #Rib fractures- Secondary to CPR Ribs 2 through 7 on the right, ribs 2 through 8 on the left. Initially plan was to admit to the ICU, however patient declined any ICU level care. Remains a DNR/DNI, would not want vasopressors. Admitted to PCU and pulmonology was consulted - recommend supportive care aggressive pulmonary toilet with incentive spirometry, ambulation as tolerated. Pain has been controlled with Scheduled Tylenol, home schedule tramadol. PRN PO dilaudid. repeat cxr 02/13 stable fractures - no effusions Monitor constipation on opioids #Anemia-hemoglobin slowly trended down to 9.8 but no evidence of hemothorax on CXR. #A-fib on warfarin Also with prosthetic mitral valve. Continue metoprolol and statin. resume Coumadin 02/13, INR 1.1, INR has improved to 1.4 - continue coumadin home dose. recommend recheck INR in 2-3 days #mental health - continue cymbalta #hypothyroid - continue synthroid TSH elevated but with acute events recommend recheck outpatient, no dose adjustments made dispo: discharge to home SNF today Family updated at bedside 02/12 & 02/13 Notes For Next Care Provider outpatient cardiology f/u check tSH in 4-6 week s check INR in 2-3 days continue pulmonary toilet Medication Changes From Visit lasix changed to prn Admission HPI Per Admitting Provider Aura is an 84 F with a PMHx of afib, HLD, hypothyroid, GERD, hx of breast cancer, ERASTO and CHF who presents to hospital after possible outside cardiac arrest. history obtained from patient, ER doctor and family at bedside. Per report, hany felt fine this morning, took her pills and was eating breakfast. Was trying to take a sip of her coffee and was weak and could not lift her arm and then became weak and unresponsive. BLS ambulence crew on scene thought she had lost pulse and started compressions, rosc after one round of compressions. then BP was 60/40s and one round of epi was given patient does not recall the events. Reports feeling tired when I saw her in the ED. NOrmal state of health the last few days. Did take her medications this mroren informed of her rib fractures Patient would like to be a DNR/DNI Discharge Exam General: NAD, VS as above Resp: normal respiratory effort, lungs clear to auscultation chest - no bruising or obvious deformity, , no evidence of flail chest CV: A-fib, no murmur, Abd: normal bowel sounds, non tender, no hepatosplenomegaly Extremities: Moves all extremities, ambulated to bathroom SBA Neuro: A&O x3, Skin: intact, no lesions noted Discharge Plan Discharge Items Patient Disposition: Transfer [facility] Fac Reason For Visit: CARDIAC ARREST,RIB FX Discharge Diagnosis: Rib fractures Condition on Discharge: Good Activity: As commented below Activity Comment: work with therapy to get stronger Weightbearing: Full weightbearing Non-emergency contact: Primary Care Provider and Outside Event Sales Specialist Call non-emergency contact if: you have any medication questions, your symptoms worsen, your pain is worsening and your temperature is above 101 Follow-up/Referrals: PCP,NO [Primary Care Provider] - Diet: Heart Healthy Addtl Attending Provider Instructions: Ms. Vance, You were hospitalized after having a possible cardiac arrest at home. Unf ortunately because of the chest compressions, you have suffered multiple rib fractures. To treat this we focus on pain control while you continue to heal. It is important that you continue to use your incentive spirometer and flutter valve (plastic breathing devices) to ensure you are utilizing all of your lungs. There is a possibility that you passed out because of dehydration and did not actually have a cardiac arrest. For this reason, we have changed you lasix dose to as needed for weight gain. Please weigh yourself daily and take lasix as needed for weight gain > 2 pounds, take daily until back to your dry (normal) weight. Pain control: schedule tylenol 500mg TID, normal scheduled tramadol and additional prn PO dilaudid You will need to follow up with cardiology in the area, would recommend an outpatient monitor to monitor for any arrythmias. Please report to local ER with worsening symptoms. Pending Studies at Discharge: No Stand-Alone Forms: My [facility] Skilled Items Patient informed of condition?: Yes DNR: Yes Discharge Level of Care: Skilled Communicable Disease: No Discharge Prognosis: Stable Lines: None Urinary Catheter: No Medications and DC Order Prescriptions: New hydromorphone [Dilaudid] 2 mg Tablet 1 mg PO Q4H PRN (Reason: pain) Qty: 10 0RF acetaminophen [Tylenol Extra Strength] 500 mg Tablet 500 mg PO TID Qty: 30 0RF Continued atorvastatin 40 mg tablet 40 mg PO QPM metoprolol succinate 50 mg tablet extended release 24 hr 50 mg PO QAM sennosides-docusate sodium [Senna Plus] 8.6-50 mg Tablet 2 tab-cap PO BID Rx Instructions: 9AM AND 4PM cyanocobalamin (vitamin B-12) [Vitamin B-12] 1,000 mcg Tablet 1,000 mcg PO QAM tramadol 50 mg tablet 50 mg PO Q8H Rx Instructions: Take 50mg by mouth at 6am, 2pm and 4PM levothyroxine 25 mcg tablet 25 mcg PO DAILYBB calcium carbonate [Calcium 500] 500 mg calcium (1,250 mg) Tablet 500 mg PO QAM ascorbic acid (vitamin C) [Vitamin C] 500 mg Tablet 1,000 mg PO QAM trazodone 100 mg tablet 100 mg PO QPM ferrous sulfate 325 mg (65 mg iron) Tablet 325 mg PO BID Rx Instructions: 9AM AND 4PM omeprazole 20 mg capsule,delayed release(DR/EC) 20 mg PO QAM duloxetine 60 mg capsule,delayed release(DR/EC) 60 mg PO QAM pregabalin [Lyrica] 75 mg capsule 75 mg PO BID Rx Instructions: Take 75mg at 9am and 4PM melatonin 5 mg Tablet 10 mg PO QPM cholecalciferol (vitamin D3) [Vitamin D3] 125 mcg (5,000 unit) Tablet 125 mcg PO QAM warfarin 4 mg tablet 4 mg PO QPM Rx Instructions: Take w/ 0.5mg (1/2 of 1mg tablet) to equal 4.5mg by mouth at 4pm warfarin 1 mg tablet 0.5 mg PO QPM Rx Instructions: Take w/ 4mg to equal 4.5mg by mouth at 4pm Changed furosemide 40 mg tablet 40 mg PO QAM PRN (Reason: weight gain) Qty: 0 0RF Discontinued acetaminophen 650 mg Tablet Extended Release 650 mg PO QPM Discharge Orders: Discharge Order (Routine); Ordered 02/15/25 Ordered By: Cristaina Jones/Other Patient Handouts: Eating Heart-Healthy Foods, ED Rib Fracture Admission Data Admit Date/Time: 02/12/25 11:39 Attending Provider: Naren Quick Admit Provider: Angeline Gallo Primary Care Provider: PCP,NO Other Providers: Angeline Gallo; Dejon Carlin; Tolu Carpenter; Shad Figueroa Hospital Stay Data Consultations 02/12/25 11:30 ED Decision to Admit Stat 02/12/25 11:40 Consult Cardiology Routine 02/12/25 12:24 Consult Pulmonology Routine 02/12/25 14:42 Consult Car Repair Supervisor Routine Diagnostic Imagining Performed Chest X-Ray 02/12/25 09:45 XR chest 1V portable CLINICAL HISTORY: Chest pain, nonspecific COMPARISON STUDY: None FINDINGS: There is cardiac valve repair. There is mild cardiomegaly without pulmonary vascular congestion. No consolidation or pleural effusion seen. No pneumothorax. IMPRESSION: No acute findings. ACT 112: Negative or not required by law. Electronically signed by: Jeremy Godfrey M.D. 02/12/2025 10:[address] 02/12/25 09:[address] WITH CONTRAST CT DOSE: 1172.03 mGy.cm HISTORY: Acute chest and upper back pain. Recent cardiac arrest with CPR chest/back pain, s/p CPR TECHNIQUE: Multiaxial CT images of the chest were performed following the IV administration of 94 cc of Optiray. A dose lowering technique was utilized adhering to the principles of ALARA. COMPARISON: None. FINDINGS: No dominant thyroid nodule or pathologically enlarged lymph nodes. Heart is mildly enlarged. Median sternotomy. Prosthetic aortic and mitral valves. Mild ectasia of the ascending thoracic aorta measures 3.9 cm. Unremarkable pulmonary artery. No pneumothorax, pleural effusion or overt pulmonary edema. Subsegmental bibasilar atelectasis/scarring. There are no suspicious pulmonary nodules or masses. Central airways are patent. Cholecystectomy. Unremarkable soft tissues. Degenerative changes of the shoulders and spine. No acute displaced rib fractures. Acute bilateral anterolateral rib fractures. This includes the right second through seventh ribs with the right fifth rib fracture in two places. Acute nondisplaced fractures of the anterolateral left second through eighth ribs. A few of the fractures are mildly angulated. The left fifth rib is fractured in two places with minimally displaced fracture anteriorly on image 159. No acute sternal fracture identified. IMPRESSION: 1. Acute bilateral rib fractures with the anterior left fifth rib fracture mildly displaced. 2. No pneumothorax. 3. No acute sternal fracture identified. ACT 112: Negative or not required by law. Electronically signed by: Regulo Olsen M.D. 02/12/2025 10:[address] 02/12/25 09:47 CT head/brain wo con CLINICAL HISTORY: syncope. TECHNIQUE: Multiple axial CT images of the head were obtained without contrast. A dose lowering technique was utilized adhering to the principles of ALARA. CT DOSE: 1172 COMPARISON: None FINDINGS: There are globus pallidus and choroid plexus calcifications. No intracranial hemorrhage seen. No mass effect, midline shift, or hydrocephalus. There are a few old lacunar infarctions at the left basal ganglia. There are moderate chronic small vessel ischemic changes. There is severe mucosal thi ckening at the visualized right maxillary sinus with mild thickening of the right maxillary sinus wall consistent with chronic right maxillary sinusitis. Otherwise the visualized paranasal sinuses and mastoid air cells are clear. No skull fracture seen. IMPRESSION: 1. No acute intracranial findings. 2. Chronic right maxillary sinusitis. ACT 112: Negative or not required by law. The above report was generated using voice recognition software. It may contain grammatical, syntax or spelling errors. Electronically signed by: Jeremy Godfrey M.D. 02/12/2025 10:26 AM Chest X-Ray 02/13/25 13:09 XR chest 1V portable CLINICAL HISTORY: recheck rib fx, r/o effusion COMPARISON STUDY: 02/12/2025 FINDINGS: Stable cardiac valve repair. Stable cardiomegaly without pulmonary vascular congestion. No consolidation or pleural effusion seen. No pneumothorax. Rib fractures have stable alignment. IMPRESSION: Stable exam. ACT 112: Negative or not required by law. Electronically signed by: Jeremy Godfrey M.D. 02/13/2025 2:01 PM Pending Results Patient Have Any Pending Studies at Discharge: No Discharge Instructions Given to Patient (Per Discharging Provider) Ms. Vance, Cliff were hospitalized after having a possible cardiac arrest at home. Unfortunately because of the chest compressions, you have suffered multiple rib fractures. To treat this we focus on pain control while you continue to heal. It is important that you continue to use your incentive spirometer and flutter valve (plastic breathing devices) to ensure you are utilizing all of your lungs. There is a possibility that you passed out because of dehydration and did not actually have a cardiac arrest. For this reason, we have changed you lasix dose to as needed for weight gain. Please weigh yourself daily and take lasix as needed for weight gain > 2 pounds, take daily until back to your dry (normal) weight. Pain control: schedule tylenol 500mg TID, normal scheduled tramadol and additional prn PO dilaudid You will need to follow up with cardiology in the area, would recommend an outpatient monitor to monitor for any arrythmias. Please report to local ER with worsening symptoms. Total Time Total Time Spent Total Time Spent (In Minutes): Time spent day of discharge 35 minutes including direct patient care, medication reconciliation, documentation, review of labs and images, and coordination of care. Coding Level of Care Code 40152 INP/OBS DISCH >30 MIN Diagnoses Cardiac arrest I46.9 H/O prosthetic mitral valve Z95.2 Closed fracture of multiple ribs of both sides, initial encounter S22.43XA Encounter type: initial encounter Fracture type: closed Laterality: bilateral Atrial fibrillation I48.91 Atrial fibrillation type: unspecified Hypothyroid E03.9
== END 2025-02-15 17:43 | DRG 312 ==
LOC: ED 09:31 → SUATTDRO 11:39 → 2S 11:39